=== PATIENT | female | born 1955 | race Caucasian/White ===

== ENCOUNTER 2021-07-16 15:20 | Outpatient (REF) | payer OTHER, SELFPAY ==
--- NOTE | ~2021-07-16 | US_ITS ---
EXAMINATION: US PELVIS CLINICAL INFORMATION: This is a 65-year-old female with left lower quadrant pain. Postmenopausal. COMPARISON: None TECHNIQUE: Ultrasound of the pelvis is performed using both transabdominal and transvaginal transducers along with Doppler. Transvaginal imaging is performed due to inadequate visualization transabdominally. FINDINGS: Uterus: The uterus is anteverted and anteflexed and measures 3.7 x 2.1 x 3.1 cm. The double wall endometrial thickness is abnormal and contains fluid and debris and measures 3 mm. The uterus is smooth in contour and has normal myometrial echogenicity. There is a hypoechoic, smooth, noncalcified probable fibroid in the posterior fundus measuring 1.9 x 1.0 x 1.5 cm. Adnexa: The right ovary is not seen. The left ovary is difficult to visualize. It is felt to measure 1.6 x 1.2 x 1.7 cm for a volume of 1.7 mL. There is a complex cystic area distinct from the ovary which has a thickened wall without septation or nodularity. This measures 5.1 x 4.5 x 4.7 cm. No free fluid is seen in the pelvis. US/US pelvic and transvaginal IMPRESSION: 1. The study is abnormal in 2 areas. 2. The endometrial cavity appears abnormal, measuring 0.3 cm and containing fluid and debris. 3. In addition, there is a complex tic walled cyst in the left adnexal area which appears to be distinct from the ovary. 4 given this constellation of findings, I recommend an MRI of the pelvis.
== END 2021-07-16 15:21 | disposition home or self-care (01) ==
LOC: HO.HMGCX 15:20
PROVIDERS: PCP Pediatrics; Visit Provider Pediatrics
DX: R10.32 Left lower quadrant pain (principal)
CPT/HCPCS: 76830; 76856

== ENCOUNTER → 2021-10-07 10:31 | Outpatient (BNVA) | payer OTHER, SELFPAY | PROVIDERS: PCP Pediatrics; Visit Provider Surgery Vascular Surgery | DX: I83.12 Varicose veins of left lower extremity with inflammation (principal) | CPT/HCPCS: 99212 ==

== ENCOUNTER → 2021-10-18 09:22 | Outpatient (BNVA) | payer OTHER, SELFPAY | PROVIDERS: PCP Pediatrics; Referring Provider Pediatrics; Visit Provider Internal Medicine Cardiovascular Disease | DX: I47.1 Supraventricular tachycardia (principal) | CPT/HCPCS: 99212 ==

== ENCOUNTER 2021-10-26 07:54 | Outpatient (REF) | payer OTHER, SELFPAY ==
--- NOTE | ~2021-10-26 | US_ITS ---
EXAMINATION: US LOWER EXTREMITY VENOUS (REFLUX EXAM), BILATERAL CLINICAL INDICATION: This is a 65-year-old female with venous insufficiency and varicose veins. Venous reflux. COMPARISON: None. TECHNIQUE: Color flow triplex imaging and compression Doppler was performed to evaluate both the deep and the superficial systems bilaterally. To evaluate the superficial system, the examination was performed in the upright position. Color-flow Doppler ultrasound and compression ultrasound were utilized. In addition, maneuvers were utilized to demonstrate reflux. FINDINGS: 1. DEEP VENOUS ULTRASOUND OF THE RIGHT LOWER EXTREMITY: Common Femoral Vein: Compressible, normal respiratory variation and augmented flow. Femoral vein: Compressible, normal color flow and augmentation. Popliteal Vein: Compressible, normal augmentation. Deep Reflux: There is no evidence of reflux in the deep system in either the common femoral vein or the popliteal vein. There is no evidence of a Hurt's cyst. 2. SUPERFICIAL ULTRASOUND WITH DOPPLER OF RIGHT LOWER EXTREMITY: GREAT SAPHENOUS VEIN: Saphenofemoral Junction: 0.6 cm. The reflux time is 1704 ms. Mid Thigh: 0.4 cm. The reflux time is 3552 ms. Above Knee: 0.3 cm. There is no reflux. Below Knee: 0.4 cm. The reflux time is 3528 ms. Mid Calf: 0.2 cm. There is no reflux. Ankle: 0.2 cm. There is no reflux. GSV REFLUX: No evidence of reflux. DUPLICATED GREAT SAPHENOUS VEIN: None SMALL SAPHENOUS VEIN: Proximal: 0.1 cm Distal: 0.2 cm SSV REFLUX: No evidence of reflux. VEIN OF GIACOMINI: None Imaged. PERFORATORS: There is a 0.2 cm mid calf division chair without reflux. VARICOSITIES: There are mid thigh varicose veins measuring 0.5 cm with 2332 ms of reflux. There is distal thigh varicose veins measuring 0.4 cm with greater than 3 seconds of reflux. There are 0.6 cm varicose veins at the knee with greater than 3 seconds of reflux. There is a 0.4 cm varicose vein in the proximal calf with greater than 3 seconds of reflux. 3. DEEP VENOUS ULTRASOUND OF THE LEFT LOWER EXTREMITY: Common Femoral Vein: Compressible, normal respiratory variation and augmented flow. Femoral Vein: Compressible, normal color flow and augmentation. Popliteal Vein: Compressible, normal augmentation. Deep Reflux: There is no evidence of reflux in the deep system in either the common femoral vein or the popliteal vein. There is no evidence of a Hurt's cyst. 4. SUPERFICIAL ULTRASOUND WITH DOPPLER OF LEFT LOWER EXTREMITY: GREAT SAPHENOUS VEIN: Saphenofemoral Junction: 0.9 cm. There is no reflux at the junction. Mid Thigh: 0.6 cm. The reflux time is 3292 ms per Above Knee: 0.6 cm. The reflux time is 3460 ms. Below Knee: 0.7 cm. The reflux time is 3532 ms. Mid Calf: 0.3 cm. The reflux time is 3220 ms. Ankle: 0.2 cm. There is no reflux. GSV REFLUX: No evidence of reflux. DUPLICATED GREAT SAPHENOUS VEIN: None SMALL SAPHENOUS VEIN: Proximal: 0.3 cm Distal: 0.2 cm SSV REFLUX: No evidence of reflux. VEIN OF GIACOMINI: None Imaged. PERFORATORS: There are 0.3 cm perforators in the mid and distal calf with 1996 ms of reflux. VARICOSITIES: There are 0.5 cm and 0.6 cm varicose veins in the distal thigh and proximal calf, respectively with greater than 3 seconds of reflux. US/US venous duplex LE BI IMPRESSION: 1. There is a patent right great saphenous vein with reflux at the junction and extending down the thigh. 2. There are varicose veins in the right thigh and calf with greater than 3 seconds of reflux. 3. There is a patent right small saphenous vein without reflux. 4. There is a patent left great saphenous vein without reflux at the junction. However, there is reflux from the proximal thigh down to the mid calf. 5. There is a patent left small saphenous vein without reflux. 6. There are 0.5 cm and 0.6 cm, respectively, varicose veins with greater than 3 seconds of reflux in the left leg.
== END 2021-10-26 07:55 | disposition home or self-care (01) ==
LOC: HO.US 07:54
PROVIDERS: Visit Provider Surgery Vascular Surgery
DX: I83.12 Varicose veins of left lower extremity with inflammation (principal)
CPT/HCPCS: 93970

== ENCOUNTER → 2021-12-29 09:18 | Outpatient (REF) | payer OTHER, SELFPAY ==
--- NOTE | 2021-12-29 09:23 | CA_ITS ---
Transthoracic Echocardiogram Patient (Last, First, Middle): Macarena Roa, Gender: Female Date of : 1955 Age: 66 Procedure Date: 12/29/2021 Procedure Type: Transthoracic Echocardiogram Location: OP Height: 165.1 cm Weight: 58.97 kg BSA: 1.65 m2 Heart Rate: bpm BP: 126 / 79 mmHg Tapper Balance Wheel Screw Hole: VH/TO Referring MD: Chan Henderson MD Body Presser: Chan Henderson MD Symptoms: I47.1 - Supraventricular tachycardia Study Quality: Good ECG Rhythm: Sinus Conclusions: - Essentially normal study Findings Left Ventricle Normal left ventricular size, thickness, and systolic function. The visually estimated ejection fraction is between 60-65%. Spectral Doppler is indicative of a normal filling pattern. Right Ventricle Normal right ventricular cavity size and systolic function. Atria Both atria are normal in size. There is no evidence of interatrial shunt. Aortic Valve Normal aortic valve structure and function. There is no aortic valve stenosis. There is no aortic valve regurgitation. Mitral Valve Normal mitral valve structure and function. There is trace mitral valve regurgitation. There is no mitral valve stenosis. Pulmonic Valve The pulmonic valve was not well visualized. Tricuspid Valve Normal tricuspid valve structure. There is trace tricuspid valve regurgitation. Normal right atrial pressure. There is no evidence of pulmonary hypertension. Great Vessels All visible segments of the aorta are normal in size. The pulmonary artery was not well visualized. Venous The inferior vena cava is normal in size and collapses greater than 50% with inspiration. Pericardium/Pleural There is no evidence of pericardial effusion. Prior Study Comparison No significant change compared to prior study dated: 01/10/2017. Measurements 2D Linear Measurements IVSd: 0.66 0.6-0.9/0.6-1.0 cm LVIDd: 4.18 3.9-5.3/4.2-5.9 cm LVIDd Index: 2.53 2.4-3.2/2.2-3.1 cm/m2 LVIDs: 2.77 2.0-3.6 cm LVPWd: 0.70 0.7-1.1 cm Ao Root: 3.20 2.1-3.5 cm LA Diam: 2.70 2.7-3.8/3.0-4.0 cm LAIDs Index: 1.64 1.5-2.3 cm/m2 LV Mass: 99.92 67-162/88-224 g LV Mass Index: 60.56 43-95/49-115 g/m2 LVOT Diam: 2.00 3.0+(-)1.3 cm Mitral Valve MV Pk E: 0.49 MV PK A: 0.52 MV Decel Time: 212.00 E/A: 0.90 E'Lateral: 10.70 E'Medial: 9.57 E/E' Med: 5.20 E/E' Lat: 4.60 PHT: 62.00 MVA PHT: 3.55 Decel Woodruff: 2.32 Aortic Valve AoV Pk Lewis: 1.13 AoV Mn Lewis: 0.84 AoV VTI: 0.26 AoV Pk Grad: 5.00 Aov Mn Grad: 3.00 RAMONE Cont.VTI: 2.82 LVOT LVOT Pk Lewis: 1.04 LVOT Mn Lewis: 0.65 LVOT VTI: 0.23 LVOT Pk Grad: 4.00 LVOT Mn Grad: 2.00 LVOT Diam: 2.00 LVOT Area: 3.14 Diastolic Function MV Pk E: 0.49 MV Pk A: 0.52 E/A: 0.90 E'Medial: 9.57 E/E' Med: 5.20 E' Laterial: 10.70 E/E' Lat: 4.60 Tricuspid Valve TR Pk Lewis: 1.68 TR Pk Grad: 11.00 RA Press: 3.00 RVSP: 14.00 Great Vessels Aorta Ao Root-2D: 3.20 2.0-3.7 cm Ao Asc: 3.60 2.1-3.4 cm Pulmonary Valve PV Pk Lewis: 0.71 Peak PV Grad: 2.00 Updated in Other Vendor System with Status of Final Chan Henderson MD electronically signed on 12/29/2021 1:30:42 PM with status of Final
== END ==
LOC: HO.CARD 09:18
PROVIDERS: Visit Provider Internal Medicine Cardiovascular Disease
DX: I47.1 Supraventricular tachycardia (principal)
CPT/HCPCS: 93306

== ENCOUNTER → 2021-12-30 15:17 | Outpatient (BNVA) | payer OTHER, SELFPAY | PROVIDERS: PCP Pediatrics; Visit Provider Surgery Vascular Surgery | DX: I83.12 Varicose veins of left lower extremity with inflammation (principal) | CPT/HCPCS: 99212 ==

== ENCOUNTER → 2022-01-11 14:54 | Outpatient (BNVA) | payer OTHER, SELFPAY | PROVIDERS: PCP Pediatrics; Referring Provider Pediatrics; Visit Provider Internal Medicine Cardiovascular Disease | DX: I47.1 Supraventricular tachycardia (principal) | CPT/HCPCS: 99212 ==

== ENCOUNTER → 2022-01-28 10:21 | Outpatient (BNVA) | payer OTHER, SELFPAY | PROVIDERS: PCP Pediatrics; Visit Provider Surgery Vascular Surgery | DX: I83.12 Varicose veins of left lower extremity with inflammation (principal) | CPT/HCPCS: 36475 ==

== ENCOUNTER 2022-01-31 15:01 | Outpatient (REF) | payer OTHER, SELFPAY ==
--- NOTE | ~2022-01-31 | US_ITS ---
EXAMINATION: US VENOUS ULTRASOUND WITH DOPPLER LOWER EXTREMITY, LEFT CLINICAL INFORMATION: Pain. Post RF procedure 01/28/2021 COMPARISON: None TECHNIQUE: Ultrasound of the deep veins is performed from the hip to the calf with compression sonography and color and pulse Doppler assessment. Spectral analysis with color-flow imaging is performed. FINDINGS: There is normal venous compression and respiratory variation and augmented flow. The visualized common femoral vein, superficial femoral vein, profunda femoral vein, popliteal vein, and the trifurcation region shows no evidence of deep venous thrombosis. There is echogenic material seen in the greater saphenous vein post RF procedure. This extends to 2.3 cm from the saphenofemoral junction. The visualized greater saphenous vein is closed. There is no significant popliteal fossa cyst. US/US venous duplex LE LT IMPRESSION: No DVT demonstrated in the left lower extremity.
== END 2022-01-31 15:02 | disposition home or self-care (01) ==
LOC: HO.US 15:01
PROVIDERS: Visit Provider Surgery Vascular Surgery
DX: M79.605 Pain in left leg (principal)
CPT/HCPCS: 93971

== ENCOUNTER → 2022-02-17 15:00 | Outpatient (BNVA) | payer OTHER, SELFPAY | PROVIDERS: PCP Pediatrics; Visit Provider Surgery Vascular Surgery | DX: I83.11 Varicose veins of right lower extremity with inflammation (principal) | CPT/HCPCS: 99212 ==

== ENCOUNTER → 2022-04-08 09:55 | Outpatient (BNVA) | payer OTHER, SELFPAY | PROVIDERS: PCP Pediatrics; Visit Provider Surgery Vascular Surgery | DX: I83.11 Varicose veins of right lower extremity with inflammation (principal) | CPT/HCPCS: 36475 ==

== ENCOUNTER 2022-04-11 11:08 | Outpatient (REF) | payer OTHER, SELFPAY ==
--- NOTE | ~2022-04-11 | US_ITS ---
EXAMINATION: US VENOUS ULTRASOUND WITH DOPPLER LOWER EXTREMITY, RIGHT CLINICAL INFORMATION: Pain and swelling COMPARISON: None TECHNIQUE: Ultrasound of the deep veins is performed from the hip to the calf with compression sonography and color and pulse Doppler assessment. Spectral analysis with color-flow imaging is performed. FINDINGS: There is normal venous compression and respiratory variation and augmented flow. The visualized common femoral vein, superficial femoral vein, profunda femoral vein, popliteal vein, and the trifurcation region shows no evidence of deep venous thrombosis. There is no significant popliteal fossa cyst. US/US venous duplex LE RT IMPRESSION: No DVT demonstrated in the right lower extremity.
== END 2022-04-11 11:09 | disposition home or self-care (01) ==
LOC: HO.US 11:08
PROVIDERS: Visit Provider Surgery Vascular Surgery
DX: M79.604 Pain in right leg (principal)
CPT/HCPCS: 93971

== ENCOUNTER → 2022-04-21 15:46 | Outpatient (BNVA) | payer OTHER, SELFPAY | PROVIDERS: PCP Pediatrics; Visit Provider Surgery Vascular Surgery | DX: I83.11 Varicose veins of right lower extremity with inflammation (principal); Z98.890 Other specified postprocedural states | CPT/HCPCS: 99212 ==

== ENCOUNTER → 2023-01-12 14:25 | Outpatient (BNVA) | payer SELFPAY | PROVIDERS: PCP Pediatrics; Referring Provider Pediatrics; Visit Provider Internal Medicine Cardiovascular Disease | DX: I47.1 Supraventricular tachycardia (principal); R07.89 Other chest pain | CPT/HCPCS: 93005; 99212 ==

== ENCOUNTER 2023-04-13 13:04 | Outpatient (REF) | payer OTHER, SELFPAY ==
--- NOTE | ~2023-04-13 | MM_ITS ---
EXAMINATION: MM SCREENING DIGITAL BREAST TOMOSYNTHESIS, BILATERAL CLINICAL INFORMATION: Screening. Asymptomatic. The lifetime risk of breast cancer based on the Tyrer-Cuzick Model is 6%. COMPARISON: Mammography: 08/14/2019, 07/26/2018, 01/12/2016 TECHNIQUE: Digital breast tomosynthesis is performed in both the craniocaudal and mediolateral oblique views along with computer-aided detection (CAD). Synthesized 2D images are generated from the tomosynthesis. FINDINGS: The breasts are heterogeneously dense, which may obscure small masses (ACR BI-RADS breast composition Category c). Breast tissue composition borders on average fibroglandular. There are no significant masses, abnormal calcifications, or other abnormalities. No architectural abnormality or developing density. Again, there are are stable oval nodules in the bilateral outer quadrants similar to prior studies. The axilla and skin contours are unremarkable. MM/MM tomosynthesis screening BI IMPRESSION: No mammographic evidence of malignancy. ASSESSMENT: BI-RADS 2: Benign RECOMMENDATION: Routine annual mammography screening. This patient's information was entered into a reminder system with a target due date for their next mammogram.
--- NOTE | ~2023-04-13 | MM_ITS ---
EXAMINATION: BONE DENSITOMETRY CLINICAL INDICATION: Osteopenia. COMPARISON: Previous BD dated 07/26/2018 and baseline BD dated 02/11/2011. TECHNIQUE: Using a zLense DXA System (software version: 13.1) manufactured by [employer], dual-energy x-ray absorptiometry was performed of the lumbar spine and left hip. The images are of good technical quality. Summary results are attached. FINDINGS: AP SPINE L1-L2 (excluding L3 and L4): The data of L1-L4 has been changed to exclude the L3 and L4 vertebral bodies, because degenerative sclerosis at these levels may cause overestimation of lumbar spine density. Current: BMD 1.009 g/cm2, Z-score 0.4, T-score -1.3, osteopenia, 0.2% decrease from previous, 3.2% decrease from baseline (<5% change is not significant). Prior: BMD 1.011 g/cm2. Baseline: BMD 1.042 g/cm2. LEFT FEMUR, NECK: Current: BMD 0.811 g/cm2, Z-score -0.1, T-score -1.6, osteopenia. Prior: BMD 0.749 g/cm2. Baseline: BMD 0.886 g/cm2. LEFT FEMUR, TOTAL: Current: BMD 0.888 g/cm2, Z-score 0.3, T-score -1.0, normal, 11.1% increase from previous, 8.4% decrease from baseline (<5% change is not significant). Prior: BMD 0.829 g/cm2. Baseline: BMD 0.969 g/cm2. IDENTIFIED RISK FACTORS: Menopause. HISTORY OF FRACTURE: None listed. MEDICATIONS: Calcium supplements or multivitamin, vitamin D. MM/XR DEXA axial skeleton IMPRESSION: 1. DIAGNOSIS: Osteopenia based on the lowest T-score value of -1.6 in the femoral neck applying World Health Organization criteria. 2. 10-YEAR FRACTURE RISK PREDICTION, FRAX: Major osteoporotic fracture (clinical spine, forearm, hip or shoulder) 9.1%. Hip fracture 1.1%. 3. Treatment Recommendations: NOF guidelines recommend consideration for treatment in postmenopausal women and men age 50 and older presenting with the following: -A hip or vertebral (clinical or morphometric) fracture. -T-score less than or equal to -2.5 at the femoral neck or spine after appropriate evaluation to exclude secondary causes. -Low bone mass at the hip or spine and a 10-year fracture probability by FRAX of greater than or equal to 3% for hip fracture or greater than or equal to 20% for major osteoporotic fracture based on the [place] adapted WHO algorithm. 4. Other Recommendations: All treatment decisions require clinical judgment and consideration of individual patient factors, including patient preferences, comorbidities, previous drug use, risk factors not captured in the FRAX model (e.g. frailty, falls, vitamin D deficiency, increased bone turnover, interval significant decline in bone density) and possible under or overestimation of fracture risk by FRAX. Additional medical evaluation for secondary cause of low bone mineral density may be appropriate. FUTURE SCAN RECOMMENDATION: People with diagnosed cases of osteoporosis or at high risk for fracture should have regular bone mineral density tests. For patients eligible for Medicare, routine testing is allowed once every 2 years. The testing frequency can be increased to one year for patients who have rapidly progressing disease, those who are receiving or discontinuing medical therapy to restore bone mass, or have additional risk factors.
== END 2023-04-13 13:05 | disposition home or self-care (01) ==
LOC: HO.MAMMO 13:04
PROVIDERS: Visit Provider Pediatrics
DX: Z12.31 Encounter for screening mammogram for malignant neoplasm of breast (principal); Z13.820 Encounter for screening for osteoporosis; Z78.0 Asymptomatic menopausal state; M85.859 Other specified disorders of bone density and structure, unspecified thigh
CPT/HCPCS: 77063; 77067; 77080

== ENCOUNTER 2024-01-16 15:22 | Outpatient (AMB) | payer MEDICARE, SELFPAY ==
[2024-01-16 15:37] VITALS: BP 120/70; PULSE 78; BMI 22.4
--- NOTE | 2024-01-16 15:37 | MHC.OFFVIS ---
Intake Vital Signs 01/16/24 15:37 Height 5 ft 6 in Weight 138 lb 14.259 oz BMI 22.4 BP 120/70 Blood Pressure Location Lt brachial Position Sitting Pulse 78 Intake Visit Reasons: 1 yr f/up Intake Note: 1 year follow-up with ekg feeling good c/o sometimes feeling heart heaviness Group Burner Machine Required: No Allergies environmental allergies Allergy (Verified 01/12/23 15:10) Unknown Medication List - Last Reconciled 01/16/24 by Chan Henderson MD albuterol sulfate 90 mcg/actuation 2 puffs inhalation Q4H PRN cholecalciferol (vitamin D3) 50 mcg PO DAILY fluticasone propionate 50 mcg/actuation 2 sprays intranasal DAILY levothyroxine 75 mcg PO DAILY loratadine 10 mg PO DAILY PRN sumatriptan succinate 100 mg PO HPI HPI Comments History of Present Illness Details Anabela comes for follow-up. She has had no recurrent episodes of SVT in the last 2 years since I saw him. She is doing well. Continues to exercise without any exertional symptoms. Heavily involved in care of her which has been stressful. Currently not taking any medicines from heart perspective. FOR[facility]LY [facility], [facility] Medical History SVT (supraventricular tachycardia) Surgical History Status post radiofrequency ablation (RFA) operation for arrhythmia Family History Father CAD (coronary artery disease) Cancer of kidney History of nephrectomy Mother CAD (coronary artery disease) Heart attack Social History Alcohol intake: current Alcohol intake frequency: holidays/special occasions only Alcohol type: wine Patient Tobacco Use Status: Never used Tobacco Review of Systems Const Denies chills, Denies fatigue, Denies fever(s), Denies frequent falls, Denies weakness, Denies weight gain and Denies weight loss ENT Denies dizziness Card Denies chest pain, Denies leg edema, Denies lightheadedness, Denies palpitations, Denies dyspnea, Denies dyspnea on exertion, Denies orthopnea and Denies other (loss of consciousness) Resp Denies cough, Denies dyspnea and Denies dyspnea on exertion GI Denies hematochezia and Denies change in stool character Musc Denies abnormal gait, Denies muscle weakness, Denies numbness, Denies radiating pain into limb and Denies tingling Neuro Denies abnormal gait, Denies dizziness, Denies frequent falls, Denies numbness, Denies tingling and Denies weakness Endo Denies fatigue and Denies palpitations Physical Exam Vital Signs: Last Vital Signs Pulse 78 01/16/24 15:37 BP 120/70 01/16/24 15:37 BMI result Body Mass Index 22.4 Const General: cooperative, comfortable, no acute distress, alert, awake, Physically active and anxious Nutritional Appearance: thin Orientation/consciousness: patient oriented x3 Limitations: no limitations Neck Neck: Yes trachea midline, Yes supple and Yes no JVD Resp Effort & Inspection: normal respiratory effort Auscultation: wheezes left lower Cardio Jugular venous distension: no JVD Palpation: normal PMI Rate: regular rate Rhythm: regular rhythm Heart sounds: S1 normal heart sound present, S2 normal heart sound present, no click, no gallops, no murmurs and no rubs GI Auscultation: normal bowel sounds Skin General skin exam: no rashes or lesions noted Neuro General: patient oriented x3 and no focal motor deficits Extrem General: Yes no clubbing, cyanosis or edema Office Procedures EKG Details: EKG shows normal sinus rhythm normal EKG at 78 beats per minute [id number], Complete Assessment & Plan Assessment & Plan (1) SVT (supraventricular tachycardia): Comment: AVNRT type. Most recent episode 10/09/2021 with hypotension Code(s): I47.1 - Supraventricular tachycardia Plan: Highly symptomatic SVT in the past status post ablation of the slow pathway. She is done well and is currently off all medications and has had no recurrent events. We discussed about vagal maneuvers. Avoidance of stimulants was discussed. Stress mitigation strategies were discussed. No further therapy is indicated at this point time. Will follow up in the clinic if need be. Thank you for allowing me to partake in the care Coding Level of Care Code Est Pt Level 3 (83597) Diagnoses SVT (supraventricular tachycardia) I47.1 CPT Codes EKG - CPT: 18998-[id number], Complete ([id number])
== END 2024-01-16 16:01 | disposition home or self-care (01) ==
PROVIDERS: PCP Pediatrics; Visit Provider Internal Medicine Cardiovascular Disease
DX: I47.10 Supraventricular tachycardia, unspecified (principal)
CPT/HCPCS: 93010; 99213

== ENCOUNTER → 2024-01-16 15:22 | Outpatient (BNVA) | payer MEDICARE, SELFPAY | PROVIDERS: Visit Provider Internal Medicine Cardiovascular Disease | DX: I47.10 Supraventricular tachycardia, unspecified (principal) | CPT/HCPCS: 93005; 99212 ==

== ENCOUNTER 2024-03-20 12:37 | Outpatient (REF) | payer MEDICARE, SELFPAY ==
[2024-03-20 14:26] LABS: MANUAL DIFF FLAG NO
[2024-03-20 14:41] LABS: Basophils Percent Auto 0.7 % (0-2); Eosinophils Absolute Auto 0.2 X10*3/uL (0.0-0.4); Eosinophils Percent Auto 4.6 % (0-4); Hematocrit 34.9 % (37.0-47.0); Hemoglobin 11.8 g/dl (12.0-16.0); Imm Gran Abs Auto 0.01 X10*3/uL (0.00-0.03); Imm Gran Pct Auto 0.2 % (0.0-0.4); Lymphocytes Percent Auto 46.2 % (20-40); Mean Corpuscular HGB Conc 33.8 g/dl (31.0-35.0); Mean Corpuscular Hemoglobin 31.4 pg (27.0-33.0); Mean Corpuscular Volume 92.8 fL (80.0-98.0); Mean Platelet Volume 10.5 fL (9.4-12.3); Monocytes Absolute Auto 0.4 X10*3/uL (0.1-1.2); Neutrophils Absolute Auto 1.7 x10*3/uL (2.0-8.3); Neutrophils Percent Auto 39.3 % (45-73); Platelet Count 210 X10*3/uL (160-400); Red Blood Count 3.76 X10*6/uL (4.20-5.50); Red Cell Distribution Width 12.4 % (11.0-16.0); White Blood Count 4.3 X10*3/uL (4.8-10.8)
[2024-03-20 15:27] LABS: Anion Gap 12 (12-20); Blood Urea Nitrogen 19 mg/dL (9-16); Carbon Dioxide 26 mmol/L (22-29); Chloride 105 mmol/L (96-108); Cholesterol 199 mg/dL (<200); Estimated Glomerular Filt Rate > 60; Glucose Fasting 78 mg/dL (60-99); HDL Cholesterol 85 mg/dL (>40); LDL Cholesterol Calculated 107 mg/dL (<100); Potassium 3.8 mmol/L (3.3-5.1); Sodium 139 mmol/L (135-145); Triglycerides 35 mg/dL (<150)
[2024-03-20 15:34] LABS: TSH reflex Free T4 3.59 uIU/mL (0.32-4.0); Vitamin D 25-OH Total 27.5 ng/mL (>30)
[2024-03-20 15:43] LABS: Folate 8.3 ng/mL (> or = 4.0); Vitamin B12 266 pg/mL (200-900)
== END 2024-03-20 12:38 | disposition home or self-care (01) ==
LOC: HO.CHCLDS 12:37
PROVIDERS: Visit Provider Pediatrics
DX: M85.80 Other specified disorders of bone density and structure, unspecified site (principal); E03.9 Hypothyroidism, unspecified; I47.10 Supraventricular tachycardia, unspecified; R41.3 Other amnesia; Z78.0 Asymptomatic menopausal state
CPT/HCPCS: 36415; 80048; 80061; 82306; 82607; 82746; 84443; 85025

== ENCOUNTER 2024-03-28 15:27 | Outpatient (REF) | payer MEDICARE, SELFPAY ==
--- NOTE | ~2024-03-28 | US_ITS ---
EXAMINATION: US PELVIS COMPLETE CLINICAL INFORMATION: Complex ovarian cyst follow-up COMPARISON: Pelvic ultrasound 07/16/2021 TECHNIQUE: Transabdominal and transvaginal imaging was performed. FINDINGS: The uterus is of normal size and echogenicity measuring 4.0 x 2.5 x 2.4 cm. Endometrium is distended with a moderate amount of fluid. The endometrial thickness is 0.2 cm. A 1.5 cm intramural myoma in the left body of the uterus, decreased from prior previously 1.9 cm. The right ovary was not identified sonographically. The left measures 2.3 x 1.0 x 1.2 cm for a volume of 1.4 mL. A previously seen left adnexal cyst was no longer identified on today's exam. There is no pelvic free fluid. US/US pelvic and transvaginal IMPRESSION: 1. A 1.5 cm intramural myoma in the left body of the uterus, decreased in size from prior. 2. The endometrium is distended with a moderate amount of fluid. The bilayer endometrial thickness is 0.2 cm, excluding the fluid. 3. A previously seen left adnexal cyst was no longer identified on today's exam. 4. The right ovary was not identified sonographically.
== END 2024-03-28 15:28 | disposition home or self-care (01) ==
LOC: HO.US 15:27
PROVIDERS: PCP Pediatrics; Visit Provider Pediatrics
DX: N83.202 Unspecified ovarian cyst, left side (principal)
CPT/HCPCS: 76830; 76856

== ENCOUNTER 2024-12-23 12:27 | Outpatient (REF) | payer MEDICARE, SELFPAY ==
--- NOTE | ~2024-12-23 | XR_ITS ---
CLINICAL HISTORY: 3 WEEKS OF POSTERIOR KNEE PAIN,WITH FLEXION,MILD INSTABILITY 2 view left knee Comparison: None Findings: No fractures or dislocations. Mild arthritic change of the medial knee compartment. No joint effusion. No radiopaque foreign body. There are varices within the medial aspect of the visualized left lower extremity. IMPRESSION: 1. No acute findings. This document has been electronically signed by: Yoselin Robert MD on 12/23/2024 13:47:47
--- OUTSIDE RECORDS SUMMARY | 2024-12-23 13:46 | XMS_ITS | Encounter Summary ---
Author Organization [employer] Address [address] [place] [address] Care Team Providers Care Barrel Coater Name Role Phone Rossy Macias MD Primary Care Provider [phone] Reason for Visit * Reason Onset Date Comments No Show 12/13/2024 Encounter Details Date Type Department Care Team ([facility] Contact Info) Description 12/13/2024 Telephone [facility] [address] [place] [address] Rossy Macias MD [address] [place] [address] No Show Social History Tobacco Use Types Packs/Day Years Used Date Smoking Tobacco: Never Smokeless Tobacco: Never Depression Answer Date Recorded Patient Health Questionnaire-9 Score 9 02/15/2023 Housing Stability Answer Date Recorded What is your housing situation today? I have kvngparker june 03/13/[address] you li ve. Do you have problems with any of the following? None of the above 03/13/2024 Food Insecurity Answer Date Recorded Within the past 12 months, y ou worried that your food would run out before you got money to buy more: Never True 03/13/2024 Within the past 12 months,th e food you bought just didn't last and you didn't have enough money to get more: Never True Transportation Answer Date Recorded In the past 12 months, has l ack of transportation kept you from medical appts, meetings, work or from getting things needed for daily living? No 03/13/2024 Utilities Answer Date Recorded In the past 12 months, has t he electric, gas, oil or water company threatened to shut off services in your home? No 03/13/2024 Depression Answer Date Recorded Patient Health Questionnaire-2 Score 2 02/15/2023 Comments Unknown Sex and Gender Information Value Date Recorded Sex Assigned at Female 09/19/2022 10:17 AM EDT Legal Sex Female 10:17 AM EDT Gender Identity Female 09/19/2022 10:17 AM EDT Sexual Orientation Straight 09/19/2022 10 :17 AM EDT documented as of this encounter Miscellaneous Notes * Telephone Encounter - Michelle Murray - 12/13/2024 2:52 PM EST 12/13/24 no show for sinus headache, occasional pain in legs documented in this encounter Plan of Treatment Not on file documented as of this encounter Visit Diagnoses Not on filedocumented in this encounter Additional Health Concerns Assessment Noted Time PHQ-9 Depression Total Score: 9 02/16/20 23 2:25 PM EDT documented as of this encounter Care Teams Barrel Coater Relationship Specialty Start Date End Date Rossy Macias MD [address] [place] [id number] PCP - General Family Medicine 07/15/14 documented as of this encounter
--- OUTSIDE RECORDS SUMMARY | 2024-12-23 13:46 | XMS_ITS | Encounter Summary ---
Author Organization [employer] Address [address] [facility] [address] [facility] [place] [address] Care Team Providers Care Sheet Metal Engineer Name Role Phone Rossy Macias MD Primary Care Provider [phone] Encounter Details Date Type Department Care Team (Late st Contact Info) Description 12/16/2024 3:00 PM EST Office Visit [facility] MED & PEDS [address] [place], [place] [phone] Gilma Long MD [address] [place] [address] Frontal sinus pain (Primary Dx); Posterior left knee pain Social History Tobacco Use Types Packs/Day Years Used Date Smoking Tobacco: Never Passive Smoke Exposure: Never Smokeless Tobacco: Never Tobacco Cessation:Counseling Given: Not Answered Depression Answer Date Recorded Patient Health Questionnaire-9 Score 9 02/15/2023 Housing Stability Answer Date Recorded What is your housing situation today? I have kvng june 03/13/[address] you [...] AM EDT documented as of this encounter Last Filed Vital Signs Vital Sign Reading Time Taken Comments Blood Pressure 110/68 12/16/2024 3:03 PM EST Pulse 80 12/16/2024 3:03 PM EST Temperature 36.5 ??C (97.7 ??F) 12/16/2024 3:03 PM ES T Respiratory Rate 16 12/16/2024 3:03 PM EST Oxygen Saturation - - Inhaled Oxygen Concentration - - Weight 64 kg (141 lb) 12/16/2024 3:03 PM EST Height 165.1 cm (5' 5 ) 12/16/2024 3:03 PM EST Body Mass Index 23.46 12/16/2024 3:03 PM EST documented in this encounter Progress Notes * Gilma Long MD - 12/16/2024 3:00 PM EST Subjective Patient ID: Macarena GOMEZ is a 69 y.o. female who for sinus headache and left knee pain. HPI For about 2 weeks, Macarena has had a headache intermittently that occurs over her eyebrows and above her nose. Pain is constant, not pulsating. Different than her migraines. Not associated with nasal congestion, fever, chills or recent URI. Has tried sumatriptan with some relief. Also concerned about a new pain in her left knee that started gradually a few weeks ago. Pain occurs when she flexes her knee deeply beyond 90 degrees. Also she has pain and some instability when shestands up. Denies injury, fall, swelling, other joint pain. Review of Systems Constitutional: Negative for chills and fever. HENT: Positive for sinus pain. Negative for congestion, postnasal drip and rhinorrhea. Respiratory: Negative for cough. Cardiovascular: Negative for chest pain, palpitations and leg swelling. Musculoskeletal: Positive for arthralgias. Negative for joint swelling. Objective BP 110/68 (BP Location: Left arm, Patient Position: Sitting, BP Cuff Size: Adult) Pulse 80 Temp97.7 ??F (36.5 ??C) (Oral) Resp 16 Ht 5' 5 (1.651 m) Wt 141 lb (64 kg) BMI 23.46 kg/m?? Physical Exam Constitutional: Appearance: She is not ill-appearing. HENT: Head: Normocephalic and atraumatic. Right Ear: Tympanic membrane, ear canal and external ear normal. Left Ear: Tympanic membrane, ear canal and external ear normal. Nose: Right Sinus: Frontal sinus tenderness present. Left Sinus: Frontal sinus tenderness present. Mouth/Throat: Mouth: Mucous membranes are moist. Eyes: General: No scleral icterus. Right eye: No discharge. Left eye: No discharge. Extraocular Movements: Extraocular movements intact. Conjunctiva/sclera: Conjunctivae normal. Pupils: Pupils are equal, round, and reactive to light. Pulmonary: Effort: Pulmonary effort is normal. Musculoskeletal: General: No signs of injury. Right knee: No swelling, bony tenderness or crepitus. Normal range of motion. No tenderness. No LCLlaxity, MCL laxity, ACL laxity or PCL laxity. Instability Tests: Anterior drawer test negative. Posterior drawer test negative. Left knee: Swelling (mild) and crepitus present. No bony tenderness. Normal range of motion. No tenderness. No LCL laxity, MCL laxity, ACL laxity or PCL laxity. Instability Tests: Anterior drawer test negative. Posterior drawer test negative. Right lower leg: No edema. Left lower leg: No edema. Comments: Visible but non bulging varicose veins bilateral legs. Neurological: General: No focal deficit present. Mental Status: She is alert. Psychiatric: Mood and Affect: Mood normal. Behavior: Behavior normal. Assessment/Plan Diagnoses and all orders for this visit: Frontal sinus pain: No indication for antibiotics at this time. Recommended sinus rinse as needed and gave her a sample bottle, explained how to use it. Told her to RTC if symptoms do not improve after a week or so. Posterior left knee pain: Mild swelling present but I detect no instability. No swelling in leg either to suspect DVT. Will start with knee xray and if arthritis, Rx for topical diclofenac. It none, will refer to Ortho. - XR Knee 1-2 Views Left; Future documented in this encounter Plan of Treatment Scheduled Orders Name Type Priority Associated Diagnoses Orde r Schedule XR Knee 1-2 Views Left Imaging Routine Posterior left knee pain Expected: 12/16/2024, Expires: 12/16/2025 documented as of this encounter Visit Diagnoses Diagnosis Frontal sinus pain- Primary Posterior left knee pain documented in this encounter Additional Health Concerns Assessment Noted Time PHQ-9 Depression Total Score: 9 02/16/20 23 2:25 PM EDT documented as of this encounter Care Teams Sheet Metal Engineer Relationship Specialty Start Date End Date Rossy Macias MD [address] [place] [id number] PCP - General Family Medicine 07/15/14 documented as of this encounter
--- OUTSIDE RECORDS SUMMARY | 2024-12-23 13:46 | XMS_ITS | Encounter Summary ---
Author Organization [employer] Address [address] [place] [address] Care Team Providers Care Legal Secretary Receptionist Name Role Phone Rossy Macias MD Primary Care Provider Reason for Visit * Reason Onset Date Comments Med Refill 02/22/2024 Encounter Details Date Type Department Care Team ([facility] st Contact Info) Description 02/22/2024 Telephone [facility] [address] [place] [address] Rossy Macias MD [address] [place], [place] [phone] Med Refill Social History Tobacco Use Types Packs/Day Years Used Date Smoking Tobacco: Never Assessed Depression Answer Date Recorded Patient Health Questionnaire-9 [...] encounter Miscellaneous Notes * Telephone Encounter - Chris Aviles - 02/22/2024 1:29 PM EDT Tc from pt requesting a refill albuterol 108 (90 Base) MCG/ACT inhaler. documented in this encounter Plan of Treatment Not on file documented as of this encounter Visit Diagnoses Not on filedocumented in this encounter Additional Health Concerns Assessment Noted Time PHQ-9 Depression Total Score: 9 02/16/20 23 2:25 PM EDT documented as of this encounter Care Teams Legal Secretary Receptionist Relationship Specialty Start Date End Date Rossy Macias MD [address] [place] [id number] PCP - General Family Medicine 07/15/14 documented as of this encounter
--- OUTSIDE RECORDS SUMMARY | 2024-12-23 13:46 | XMS_ITS | Encounter Summary ---
Author Organization [employer] Address [address] [place] [address] Care Team Providers Care Sports Physician Name Role Phone Rossy Macias MD Primary Care Provider [phone] Reason for Visit * Reason Onset Date Comments Walk-In 12/12/2024 Sinus headache, occasional leg pain Encounter Details Date Type Department Care Team ([facility] st Contact Info) Description 12/12/2024 Telephone [facility] MED & PEDS [address] [place] [address] Yoselin Ngo RN Walk-In (Sinus headache, occasional leg pain/) Social History Tobacco Use Types Packs/Day Years [...] encounter Miscellaneous Notes * Telephone Encounter - Yoselin Ngo RN - 12/12/2024 4:06 PM EST Patient walked-in to clinic to be seen for sinus headache and occasional leg pain. Patient is stateless speaking, stateless bilingual interpreter #[id number] used to communicate. Patient states she has headache in the sinus area forever but lately it has increased in frequency. She is now getting these headaches about 1-2 x a week. She states they are different than a migraine. She denies congestion, cough, sputum,fever. Patient is requesting imagining of her sinuses. Explained to patient that the provider will discuss imagining with her at her appointment. Appointment scheduled for 12/13/24 at 2:00 at [facility]. Patient also stated she occasionally has pain in the back of her legs. Rodríguez's sign was negative. No difficulty ambulating. Explained to patient that provider would assess her legs at appointment. Patient stated understanding and agrees with the plan. documented in this encounter Plan of Treatment Not on file documented as of this encounter Visit Diagnoses Not on filedocumented in this encounter Additional Health Concerns Assessment Noted Time PHQ-9 Depression Total Score: 9 02/16/20 23 2:25 PM EDT documented as of this encounter Care Teams Sports Physician Relationship Specialty Start Date End Date Rossy Macias MD [address] [place] [id number] PCP - General Family Medicine 07/15/14 documented as of this encounter
--- OUTSIDE RECORDS SUMMARY | 2024-12-23 13:46 | XMS_ITS | Encounter Summary ---
Author Organization [employer] Address [address] [place] [address] Care Team Providers Care Brake Lining Finisher Asbestos Name Role Phone Rossy Macias MD Primary Care Provider [phone] Reason for Visit * Reason Onset Date Comments Nurse Triage 02/22/2024 Encounter Details Date Type Department Care Team ([facility] st Contact Info) Description 02/22/2024 Telephone [facility] [address] [place] [address] Rossy Macias MD [address] [place], [place] [phone] Nurse Triage Social History Tobacco Use Types Packs/Day Years [...] encounter Miscellaneous Notes * Telephone Encounter - Wing Nandini RN - 02/23/2024 10:35 AM EDT Tc to pt regarding albuterol refill. Used [employer] [facility] [employer] [place], [place] [id number]. Pt reports feeling much better today with no shortness of breath. Due to recent cold and wet weather has been usingalbuterol 2-3 x a day recently along with Claritin. Pt states she will citrus picker her med refill todayand requested appt with PCP. Scheduled said appt on 03/07 at 11:30 am. Reminded pt that if symptoms of SOB or difficulty breathing reappear to go to ED or call EMS. Pt verbalizes understanding and agreement with plan. * Telephone Encounter - Nilda Esquivel RN - 02/22/2024 1:49 PM EDT Call to Macarena GOMEZ with [employer] [facility] [place] [id number]. Pt reports having asthma sx of cough and some chest tightness. Per pt having to use albuterol more frequently to help with sx but not less [place] 4 hours in between. Per pt has occasional wheezing. 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 No coughing fits. Pt offered appt tomorrow in [facility] or [facility] today. Pt declines as has to citrus picker spouse fromhospital. States can come in on Monday. No appts at time of call. Pt advised will send refill request for albuterol inhaler for review and follow up. Reviewed home care advise, ER precautions and reasons to call back. Protocol Used: Asthma Attack (Adult) Protocol-Based Disposition: See in Office or Video Visit Today or Tomorrow Override (Final) Disposition: Discuss with PCP and Callback by Nurse Today Override Reason: Prescription issue Video visit offer not recorded Positive Triage Question: * Mild wheezing comes and goes and lasts > 3 days * All higher-acuity triage questions were negative Care Advice Discussed: * Reassurance and Education - Mild Asthma Attack * Asthma Attack * Asthma Attack - Symptoms * Avoid Asthma Triggers * Reasons To Call Back - Quick-relief asthma medicine (such as albuterol by inhaler or nebulizer) is needed more often than every 4 hours - You become worse * Telephone Encounter - Chris Aviles - 02/22/2024 1:30 PM EDT Symptom: Asthma Attack - Caller Reports Outcome: Schedule an urgent appointment (within 1 hour) or talk to a nurse or provider soon Reason: Any trouble breathing The caller accepted this outcome Please contact at [phone] sherrie documented in this encounter Plan of Treatment Not on file documented as of this encounter Visit Diagnoses Not on filedocumented in this encounter Additional Health Concerns Assessment Noted Time PHQ-9 Depression Total Score: 9 02/16/20 23 2:25 PM EDT documented as of this encounter Care Teams Brake Lining Finisher Asbestos Relationship Specialty Start Date End Date Rossy Macias MD [address] [place] [address] PCP - General Family Medicine 07/15/14 documented as of this encounter
--- OUTSIDE RECORDS SUMMARY | 2024-12-23 13:46 | XMS_ITS | Encounter Summary ---
Author Organization [employer] Address [address] [place] [address] Care Team Providers Care Scale Tank Operator Name Role Phone Rossy Macias MD Primary Care Provider [phone] Reason for Visit * Reason Onset Date Comments Walk-In 12/23/2024 Encounter Details Date Type Department Care Team ([facility] Contact Info) Description 12/23/2024 Telephone [facility] [address] [place] [address] Rossy Macias MD [address] [place] [address] Walk-In Social History Tobacco Use Types Packs/Day Years Used Date Smoking Tobacco: Never Passive Smoke Exposure: Never Smokeless Tobacco: Never Depression Answer Date [...] encounter Miscellaneous Notes * Telephone Encounter - Zulema Gallego - 12/23/2024 1:05 PM EST Pt sitting in waiting room , states was seen last week for a sinus headache and prescribed meds, ptstates same symptoms not feeling better documented in this encounter Plan of Treatment Not on file documented as of this encounter Visit Diagnoses Not on filedocumented in this encounter Additional Health Concerns Assessment Noted Time PHQ-9 Depression Total Score: 9 02/16/20 23 2:25 PM EDT documented as of this encounter Care Teams Scale Tank Operator Relationship Specialty Start Date End Date Rossy Macias MD [address] [place] [address] PCP - General Family Medicine 07/15/14 documented as of this encounter
--- OUTSIDE RECORDS SUMMARY | 2024-12-23 13:46 | XMS_ITS | Encounter Summary ---
Author Organization [employer] Address [address] [facility] [address] [place] [address] Care Team Providers Care Stockbroker Name Role Phone Rossy Macias MD Primary Care Provider [phone] Reason for Visit * Reason Onset Date Comments Walk-In 12/12/2024 Encounter Details Date Type Department Care Team ([facility] Contact Info) Description 12/12/2024 Telephone [facility] [address] [place] [address] Rossy Macias MD [address] [place] [address] Walk-In Social History Tobacco Use Types Packs/Day [...] * Telephone Encounter - Zulema Gallego - 12/12/2024 3:39 PM EST Headache, sinus pressure documented in this encounter Plan of Treatment Not on file documented as of this encounter Visit Diagnoses Not on filedocumented in this encounter Additional Health Concerns Assessment Noted Time PHQ-9 Depression Total Score: 9 02/16/20 23 2:25 PM EDT documented as of this encounter Care Teams Stockbroker Relationship Specialty Start Date End Date Rossy Macias MD [address] [place] [id number] PCP - General Family Medicine 07/15/14 documented as of this encounter
--- OUTSIDE RECORDS SUMMARY | 2024-12-23 13:46 | XMS_ITS | Clinical Summary ---
Author Organization [employer] Address [address] [facility] 7[address] [place] [address] Care Team Providers Care Local Company Hazmat Driver Name Role Phone Rossy Macias MD Primary Care Provider [phone] Allergies No known active allergies Medications levothyroxine (Synthroid, Levoxyl) 75 MCG tablet Take 1 Tablet by Oral route once 05/03/20 22 Active fluticasone (Flonase) 50 MCG/ACT nasal spray INHALE 2 SPRAYS IN EACH NOSTRIL ONCE DAILY 16 mL 3 05/26/20 23 Active SUMAtriptan (Imitrex) 100 MG tabletIndications: Chronic migraine without aura without status migrainosus, not intractable TAKE 1 TABLET BY MOUTH AT ONSET OF MIGRAINE. MAY REPEAT ONCE AFTER 2 HOURS IF NEEDED. NO MORE THAN TWO TABLETS PER 24 HOURS 9 tablet 3 01/25/20 24 Active Nirmatrelvir&Riton avir 300/100 (Paxlovid, 300/100,) 20 x 150 MG & 10 x 100MG tablet therapy pack Take 300 mg by mouth 2 times daily. Take 3 tablets 2x/day for 5 days 30 each 04/30/20 24 Active levothyroxine (Synthroid, Levoxyl) 75 MCG tabletIndications: Acquired hypothyroidism TAKE ONE TABLET BY MOUTH EVERY DAY 30 tablet 5 07/29/20 24 Active cholecalciferol VITAMIN D (Vitamin D-3) 50 MCG (1999 UT) tablet TAKE ONE TABLET EVERY MORNING 30 tablet 11 11/04/20 24 Active loratadine (Claritin) 10 MG tablet TAKE ONE TABLET EVERY MORNING 30 tablet 11 11/04/20 24 Active Ventolin HFA 108 (90 Base) MCG/ACT inhaler INHALE TWO PUFFS EVERY 4 HOURS NEEDED 18 g 1 12/03/19 25 Active albuterol 108 (90 Base) MCG/ACT inhaler Inhale 2 puffs every 4 (four) hours if needed for wheezing. 18 g 1 04/17/20 24 025 Discontinued Active Problems Problem Noted Date Diagnosed Date Supraventricular tachycardia 12/21/2016 Varicose veins of both lower extremities 017 Varicose veins of lower extremity 12/25/2015 Adjustment disorder with depressed mood in remis saundra 09/16/2015 Acquired hypothyroidism 04/18/2012 Encounters Date Type Department Care Team Description 12/23/2024 Telephone [facility] [address] [place] [address] Rossy Macias MD Walk-In 12/16/2024 3:00 PM EST Office Visit [facility] [address] [place] [address] Gilma Long MD Frontal sinus pain (Primary Dx); Posterior left knee pain 12/16/2024 Travel 12/13/2024 Telephone [facility] [address] [place] [address] Rossy Macias MD No Show 12/12/2024 Telephone [facility] [address] [place] [address] Yoselin Ngo RN Walk-In (Sinus headache, occasional leg pain/) 12/12/2024 Telephone [facility] [address] [place] [address] Rossy Macias MD Walk-In 12/03/2024 Refill [facility] [address] [place] [address] Rossy Macias MD 11/02/2024 Refill [facility] [address] [place] [address] Rossy Macias MD from Last 3 Months Social History Tobacco Use Types Packs/Day Years [...] Orientation Straight 09/19/2022 10 :17 AM EDT Last Filed Vital Signs Vital Sign Reading Time Taken Comments Blood Pressure 110/68 12/16/2024 3:03 PM EST Pulse 80 12/16/2024 3:03 PM EST Temperature 36.5 ??C (97.7 ??F) 12/16/2024 3:03 PM ES T Respiratory Rate 16 12/16/2024 3:03 PM EST Oxygen Saturation 98% 03/20/2024 11:58 AM EDT Inhaled Oxygen Concentration - - Weight 64 kg (141 lb) 12/16/2024 3:03 PM EST Height 165.1 cm (5' 5 ) 12/16/2024 3:03 PM EST Body Mass Index 23.46 12/16/2024 3:03 PM EST Plan of Treatment Health Maintenance Due Date Last Done Comments CT Colonography 1957 Colonoscopy 1957 Colorectal Cancer Screening 1957 FIT DNA/Cologuard 1957 FIT 1957 FOBT 1957 Sigmoidoscopy 1957 Alcohol/Substance Use Screening 1969 Hepatitis C Screening 1975 Pneumococcal Vaccine: 50+ Years (1 of 1 - PCV) 2007 Zoster Vaccines (1 of 2) 2007 RSV Patients and Patients Aged 60 years or older (1 - Risk 60-74 years 1-dose series) 2017 DTaP/Tdap/Td Vaccines (2 - Td or Tdap) 06/27/2022 06/27/2012 Depression Monitoring (PHQ-9) 08/18/2023 02/15/2023, 02/15/2023 Depression Screening 02/16/2024 02/15/2023, 02/16/20 23 COVID-19 Vaccine ( season) 2024 04/01/2022, 10/13/2021, 01/06/2021, Additional history exists Influenza Vaccine (#1) 2024 7, 09/16/2015, 09/09/2014 SDOH Screening 03/13/2025 03/13/2024 Mammogram 04/13/2025 04/13/2023, 07/22, 07/27/2018 Tobacco Screening 12/16/2025 12/16/2024 Lipid Panel 03/20/2029 03/20/2024, 02/15/2023 HIB Vaccines Aged Out No longer eligi ble based on patient's age to complete this topic HPV Vaccines Aged Out No longer eligi ble based on patient's age to complete this topic Hepatitis A Vaccines Aged Out No long er eligible based on patient's age to complete this topic Hepatitis B Vaccines Aged Out No long er eligible based on patient's age to complete this topic IPV Vaccines Aged Out No longer eligi ble based on patient's age to complete this topic Meningococcal Vaccine Aged Out No yung paul eligible based on patient's age to complete this topic RSV under 20 months Aged Out No longe r eligible based on patient's age to complete this topic Rotavirus Vaccines Aged Out No longer eligible based on patient's age to complete this topic Procedures Procedure Name Priority Date/Time Associated Diagnosis Comments LIPID PANEL, STANDARD Routine 03/20/2024 12:39 PM EDT Osteopenia after menopause Acquired hypothyroidism Supraventricular tachycardia (CMS/HCC) Memory impairment of gradual onset BI MAMMOGRAM SCREENING TOMOSYNTHESIS BILATERAL Routine 04/13/2023 1:25 PM EDT from Last 3 Months or Most Recently Relevant to Health Maintenance Results * (ABNORMAL) Lipid Panel, Standard (03/20/2024 12:39 PM EDT) Triglycerides 35 <150 mg/dL [facility] Comment:Desirable Triglyceri de: less than 150 mg/dLBorderline High Triglyceride 150-199 mg/dLHigh Triglyceride: 200-499 mg/dLVery High Triglyceride: greater than or equal to 5OO mg/dL Cholesterol 199 <200 mg/dL [facility] Comment:Desirable Cholestero l: less than 200 mg/dLBorderline High Cholesterol: 200-239 mg/dLHigh Cholesterol: greater than 239 mg/dL LDL Cholesterol Calculated 107(H) <100 mg/dL [facility] Comment:Desirable LDL: less than 100 mg/dLNear Optimal/Above Optimal LDL: 110- 129 mg/dLBorderline High LDL: 130-159 mg/dLHigh LDL: 160-189 mg/dLVery High LDL: greater than or equal to 190 mg/dL HDL Cholesterol 85 >40 mg/dL [facility] Comment:Desirable HDL: great er than 40 mg/dL Note: This HDL assay may give artificially low results in patients with liver disease. Blood Venous blood specimen / Unknown 03/20/2024 12:39 PM EDT 03/20/2024 2:28 PM EDT us Rossy Macias MD LAB BLOOD ORDERABLES Final Re sult [facility] [address] [place] [address] [phone] * BI Mammogram Screening Tomosynthesis Bilateral (04/13/2023 1:25 PM EDT) Anatomical Region Laterality Modality Breast Bilateral Mammography 04/13/2023 1:25 PM EDT Narrative 04/16/2023 12:33 PM EDT ? [facility] ? [address] ?[place] [address] ? Mammography Report ? Signed ? Patient: Piskorz Zyla,Macarena ?MR#: ?? [id number] ? : 1955 ?Acct:[id number] ? Age/Sex: 67 / F ?ADM Date: 04/13/23 ? Loc: HO.MAMMO ? Attending Dr: Rossy Macias MD ? Ordering Physician: Rossy Macias MD ?Results: 2Be ?? nign Findings ? Date of Service: 04/13/23 ?Follow Up: 1 Year From Orig ?? inal Mammogram ? Procedure(s): MM tomosynthesis screening BI ?? Accession Number(s): [id number] ? cc: Rossy Macias MD ? EXAMINATION: ?? MM SCREENING DIGITAL BREAST TOMOSYNTHESIS, BILATERAL ? CLINICAL INFORMATION: ? Screening. Asymptomatic. ? The lifetime risk of breast cancer based on the Tyrer-Cuzick Model is ?? 6%. ? COMPARISON: ?? Mammography: 08/14/2019, 07/26/2018, 01/12/2016 ? TECHNIQUE: ?? Digital breast tomosynthesis is performed in both the craniocaudal and ?? mediolateral oblique views along with computer-aided detection (CAD). ?? Synthesized 2D images are generated from the tomosynthesis. ? FINDINGS: ?? The breasts are heterogeneously dense, which may obscure small masses ?? (ACR BI-RADS breast composition Category c). ? Breast tissue composition borders on average fibroglandular. There are ?? no significant masses, abnormal calcifications, or other abnormalities. ?No architectural abnormality or developing density. Again, there are ?? are stable oval nodules in the bilateral outer quadrants similar to ?? prior studies. The axilla and skin contours are unremarkable. ? MM/MM tomosynthesis screening BI ?? IMPRESSION: ?? No mammographic evidence of malignancy. ? ASSESSMENT: ? BI-RADS 2: Benign ? RECOMMENDATION: ?? Routine annual mammography screening. ? This patient's information was entered into a reminder system with a ?? target due date for their next mammogram. ? Dictated By: ?Thomas Lai MD ? Signed By: ?<Electronically signed by Thomas Lai MD in OV> ?04/16/23 1231 ? DD/ 1325 ? TD/TT: ? Stopperer Assembler: GUTIERRES ? Procedure Note Doncarmenbillieelinter, Image - 05/18/2023 [facility] [address] [place] [address] Mammography Report Signed Patient: Lilly Roa#: [id number] : 8Acct:[id number] Age/Sex: 67 / FADM Date: 04/13/23 Loc: HO.MAMMO Attending Dr: Rossy Macias MD Ordering Physician: Rossy Macias MDResults: 2Be nign Findings Date of Service: 04/13/23Follow Up: 1 Year From Orig inal Mammogram Procedure(s): MM tomosynthesis screening BI Accession Number(s): [id number] cc: Rossy Macias MD EXAMINATION: MM SCREENING DIGITAL BREAST TOMOSYNTHESIS, BILATERAL CLINICAL INFORMATION: Screening. Asymptomatic. The lifetime risk of breast cancer based on the Tyrer-Cuzick Model is 6%. COMPARISON: Mammography: 08/14/2019, 07/26/2018, 01/12/2016 TECHNIQUE: Digital breast tomosynthesis is performed in both the craniocaudal and mediolateral oblique views along with computer-aided detection (CAD). Synthesized 2D images are generated from the tomosynthesis. FINDINGS: The breasts are heterogeneously dense, which may obscure small masses (ACR BI-RADS breast composition Category c). Breast tissue composition borders on average fibroglandular. There are no significant masses, abnormal calcifications, or other abnormalities. No architectural abnormality or developing density. Again, there are are stable oval nodules in the bilateral outer quadrants similar to prior studies. The axilla and skin contours are unremarkable. MM/MM tomosynthesis screening BI IMPRESSION: No mammographic evidence of malignancy. ASSESSMENT: BI-RADS 2: Benign RECOMMENDATION: Routine annual mammography screening. This patient's information was entered into a reminder system with a target due date for their next mammogram. Dictated By: Thomas Lai MD Signed By: <Electronically signed by Thomas Lai MD in OV> 04/16/23 1231 DD/ 1325 TD/TT: Stopperer Assembler: GUTIERRES [facility] External Provider IMG BI PROCEDURES Edited Result - Final from Last 3 Months or Most Recently Relevant to Health Maintenance Insurance [facility] Care Teams Local Company Hazmat Driver Relationship Specialty Start Date End Date Rossy Macias MD [address] [place] [address] PCP - General Family Medicine 07/15/14
--- OUTSIDE RECORDS SUMMARY | 2024-12-23 13:46 | XMS_ITS | Encounter Summary ---
Author Organization [employer] Address [address] [place] [address] Care Team Providers Care Welding Process Engineer Name Role Phone Rossy Macias MD Primary Care Provider [phone] Encounter Details Date Type Department Care Team (Latest Contact Info) Description 12/16/2024 Travel Social History Tobacco Use Types Packs/Day Years [...] AM EDT documented as of this encounter Plan of Treatment Not on file documented as of this encounter Visit Diagnoses Not on filedocumented in this encounter Additional Health Concerns Assessment Noted Time PHQ-9 Depression Total Score: 9 02/16/20 23 2:25 PM EDT documented as of this encounter Care Teams Welding Process Engineer Relationship Specialty Start Date End Date Rossy Macias MD [address] [place] [address] PCP - General Family Medicine 07/15/14 documented as of this encounter
--- OUTSIDE RECORDS SUMMARY | 2024-12-23 13:46 | XMS_ITS | Encounter Summary ---
Author Organization [employer] Address [address] [facility] [address] [place] [address] Care Team Providers Care Library Serials Assistant Name Role Phone Rossy Macias MD Primary Care Provider [phone] Reason for Visit * Reason Comments Med Refill Encounter Details Date Type Department Care Team ([facility] st Contact Info) Description 12/03/2024 Refill [facility] [address] [place] [address] Rossy Macias MD [address] [place] [address] Social History Tobacco Use Types Packs/Day Years [...] documented as of this encounter Care Teams Library Serials Assistant Relationship Specialty Start Date End Date Rossy Macias MD [address] [place] [address] PCP - General Family Medicine 07/15/14 documented as of this encounter
--- OUTSIDE RECORDS SUMMARY | 2024-12-23 13:46 | XMS_ITS | Encounter Summary ---
Author Organization [employer] Address [address] [facility] [address] [place] [address] Care Team Providers Care Litigation Docket Manager Name Role Phone Rossy Macias MD Primary Care Provider [phone] Reason for Visit * Reason Comments Med Refill Encounter Details Date Type Department Care Team ([facility] st Contact Info) Description 10/03/2023 Refill [facility] [address] [place] [address] Rossy Macias MD [address] [place] [address] Social History Tobacco Use Types Packs/Day Years Used Date Smoking Tobacco: Never Assessed Depression Answer Date Recorded Patient Health Questionnaire-9 Score 9 02/15/2023 Housing Stability Answer Date Recorded What is your housing situation today? I have kvng june 09/30/[address] you li ve. Do you have problems with any of the following? None of the above 09/30/2023 Food Insecurity Answer Date Recorded Within the past 12 months, y ou worried that your food would run out before you got money to buy more: Never True 09/30/2023 Within the past 12 months,th e food you bought just didn't last and you didn't have enough money to get more: Never True 09/2023 Transportation Answer Date Recorded In the past 12 months, has l ack of transportation kept you from medical appts, meetings, work or from getting things needed for daily living? No 09/30/2023 Utilities Answer Date Recorded In the past 12 months, has t he electric, gas, oil or water company threatened to shut off services in your home? No 09/30/2023 Depression Answer Date Recorded Patient Health Questionnaire-2 [...] documented as of this encounter Care Teams Litigation Docket Manager Relationship Specialty Start Date End Date Rossy Macias MD [address] [place] [address] PCP - General Family Medicine 07/15/14 documented as of this encounter
== END 2024-12-23 12:28 | disposition home or self-care (01) ==
LOC: HO.XRAY 12:27
PROVIDERS: Visit Provider Internal Medicine
DX: M25.562 Pain in left knee (principal)
CPT/HCPCS: 73560

== ENCOUNTER → 2024-12-23 12:30 | Outpatient (BNV) | payer MEDICARE, SELFPAY | PROVIDERS: Visit Provider Radiology Diagnostic Radiology | DX: I83.812 Varicose veins of left lower extremity with pain (principal) | CPT/HCPCS: 73560 ==

== ENCOUNTER 2025-01-29 08:56 | Outpatient (REF) | payer MEDICARE, SELFPAY ==
--- OUTSIDE RECORDS SUMMARY | 2025-01-29 09:34 | XMS_ITS | Encounter Summary ---
Author Organization [employer] Address [address] [facility] 7t [place] [address] Care Team Providers Care Sports Announcer Name Role Phone Rossy Macias MD Primary Care Provider [phone] Reason for Visit * Reason Onset Date Comments Nurse Triage 01/21/2025 Encounter Details Date Type Department Care Team ([facility] st Contact Info) Description 01/21/2025 Telephone C [facility] [address] [place] [address] Rossy Macias MD [address] [place] [address] Nurse Triage Social History Tobacco Use Types [...] encounter Miscellaneous Notes * Telephone Encounter - Nilda Esquivel RN - 01/21/2025 3:54 PM EST Call to Macarena GOMEZ for triage below with [employer] general cargo clerk line with [employer] retirement administrator ID # [id number]. Pt reports that she continues to have leg pain. Pt believes its related to a venous issue not just arthritis. Per pt having calf pain. This started 3 weeks ago. NO redness, rash or bruising. Having some difficulty with walking. Pt denies any new onset of CP or SOB. Pt advised of disposition , agrees to seek [facility] as no appts with [facility] at time of call .. Reviewed [facility] operating hours and that wait times vary. Reviewed home care advise, ER precautions and reasons to call back. Protocol Used: Leg Pain (Adult) Protocol-Based Disposition: See in Office or Video Visit Today or Tomorrow Video visit offer not recorded Positive Triage Question: * Localized pain, redness or hard lump along vein * All higher-acuity triage questions were negative Care Advice Discussed: * Reasons To Call Back - Signs of infection occur (such as spreading redness, warmth, fever) - You become worse * Telephone Encounter - Priti Mandujano - 01/21/2025 3:46 PM EST Pt walked in stating she has continued leg pain. Pt was seen on Dec [facility] on [facility]. Pt does need an retirement administrator (sherrie). documented in this encounter Plan of Treatment Not on file documented as of this encounter Visit Diagnoses Not on filedocumented in this encounter Additional Health Concerns Assessment Noted Time PHQ-9 Depression Total Score: 9 02/16/20 23 2:25 PM EDT documented as of this encounter Care Teams Sports Announcer Relationship Specialty Start Date End Date Rossy Macias MD [address] [place] [address] PCP - General Family Medicine 07/15/14 documented as of this encounter
--- OUTSIDE RECORDS SUMMARY | 2025-01-29 09:34 | XMS_ITS | Encounter Summary ---
Author Organization [employer] Address [address] [facility] 7t [place] [address] Care Team Providers Care Security Sme Name Role Phone Rossy Macias MD Primary Care Provider [phone] Reason for Visit * Reason Comments Med Refill Encounter Details Date Type Department Care Team ([facility] st Contact Info) Description 10/03/2023 Refill [facility] [address] [place] [address] Rossy Macias MD [address] [place] [address] Social History Tobacco Use Types Packs/Day Years [...] documented as of this encounter Care Teams Security Sme Relationship Specialty Start Date End Date Rossy Macias MD [address] [place] [address] PCP - General Family Medicine 07/15/14 documented as of this encounter
--- OUTSIDE RECORDS SUMMARY | 2025-01-29 09:34 | XMS_ITS | Encounter Summary ---
Author Organization [employer] Address [address] [facility] 7t [place] [address] Care Team Providers Care City Attorney Name Role Phone Rossy Macias MD Primary Care Provider [phone] Reason for Visit * Reason Onset Date Comments Nurse Triage 01/27/2025 Encounter Details Date Type Department Care Team ([facility] st Contact Info) Description 01/27/2025 Telephone C [facility] [address] [place] [address] Rossy Macias MD [address] [place] [address] Nurse Triage Social History Tobacco Use Types [...] Telephone Encounter - Nilda Esquivel RN - 01/27/2025 4:30 PM EDT Call to Macarena GOMEZ for triage below with [employer] spanish language lecturer line with [employer] market research assistant ID # [id number]. Confirms that continues to have left lower leg pain and swelling. No rash or redness of lower leg. No CP or SOB. Pt agrees to PCP appt tomorrow . Protocol Used: Knee Swelling (Adult) Protocol-Based Disposition: See in Office or Video Visit within 3 Days Future Appointments Date Time Provider Department Center 01/28/2025 10:45 AM Rossy Macias MD [facility] Insurance verified as active per Real Time Eligibility in [facility]. Positive Triage Question: * Mild or Moderate swelling (e.g., can't move joint normally, can't do usual activities) (Exceptions: Itchy, localized swelling; swelling is chronic.) * All higher-acuity triage questions were negative Care Advice Discussed: * Reasons To Call Back * Reasons To Call Back - Severe pain - Fever occurs - Looks infected (spreading redness, red streak) - You become worse * Telephone Encounter - Michelle Murray - 01/27/2025 4:22 PM EDT Patient in requesting appt to be seen r/t to left leg increase in pain and swollen, muscle tightness in LLE. Pt states has been getting tx at [facility]. Pt states need further tx for this condition and wants to see pcp. Please call pt at [phone] documented in this encounter Plan of Treatment Not on file documented as of this encounter Visit Diagnoses Not on filedocumented in this encounter Additional Health Concerns Assessment Noted Time PHQ-9 Depression Total Score: 9 02/16/20 23 2:25 PM EDT documented as of this encounter Care Teams City Attorney Relationship Specialty Start Date End Date Rossy Macias MD [address] [place] [address] PCP - General Family Medicine 07/15/14 documented as of this encounter
--- OUTSIDE RECORDS SUMMARY | 2025-01-29 09:34 | XMS_ITS | Encounter Summary ---
Author Organization [employer] Address [address] [facility] [address] [place] [address] Care Team Providers Care Rebar Worker Name Role Phone Rossy Macias MD Primary Care Provider [phone] Encounter Details Date Type Department Care Team (Latest Contact Info) Description 01/28/2025 Travel Social History Tobacco Use Types Packs/Day [...] documented as of this encounter Care Teams Rebar Worker Relationship Specialty Start Date End Date Rossy Macias MD [address] [place] [address] PCP - General Family Medicine 07/15/14 documented as of this encounter
--- OUTSIDE RECORDS SUMMARY | 2025-01-29 09:34 | XMS_ITS | Encounter Summary ---
Author Organization [employer] Address [address] [facility] [address] [place] [address] Care Team Providers Care Blueprint Reader Name Role Phone Rossy Macias MD Primary Care Provider [phone] Reason for Referral * Imaging (Routine) - Authorized Specialty Diagnoses / Procedures Referred By Contac t Referred To Contact Cardiology Diagnoses Pain and swelling of knee, left Left leg swelling Procedures Vascular US lower extremity venous duplex left Rossy Macias MD [address] [place] [address] Phone: tel: fax: [address] Phone: tel: fax: Referral ID Status Reason Start Date Expiration Date Visits Requested Visits Authorized [id number] Authorized Perform Procedure 01/28/2025 01/28/2026 1 1 Encounter Details Date Type Department Care Team (Late st Contact Info) Description 01/28/2025 10:45 AM EDT Office Visit [facility] [address], [place] [phone] Rossy Macias MD [address], [place] [phone] Pain and swelling of knee, left (Primary Dx); Acquired hypothyroidism; Left leg swelling Social History Tobacco Use Types Packs/Day Years Used Date Smoking Tobacco: Never Passive Smoke Exposure: Never Smokeless Tobacco: Never Depression Answer Date Recorded Patient Health Questionnaire-9 Score 9 02/15/2023 Housing Stability Answer Date Recorded What is your housing situation today? I have kvng sing 03/13/[address] you li [...] Sign Reading Time Taken Comments Blood Pressure 111/72 01/28/2025 11:10 AM EDT Pulse 91 01/28/2025 11:10 AM EDT Temperature 36.5 ??C (97.7 ??F) 01/28/2025 11:10 AM E DT Respiratory Rate 16 01/28/2025 11:10 AM EDT Oxygen Saturation - - Inhaled Oxygen Concentration - - Weight 63 kg (139 lb) 01/28/2025 11:10 AM EDT Height 165.1 cm (5' 5 ) 01/28/2025 11:10 AM EDT Body Mass Index 23.13 01/28/2025 11:10 AM EDT documented in this encounter Progress Notes * Rossy Macias MD - 01/28/2025 10:45 AM EDT Subjective Patient ID: Macarena Yao GOMEZ is a 69 y.o. female who presents for persistent left leg/knee pain. Macarena is a 69 y/o healthy female patient of mine here for persistent left leg/knee pain.Saw in WIC at [facility] on 01/21/25 and was given meloxicam to take prn pain with food. Patient states she did not start taking it because she was unsure what it was for. Denies any falls or trauma toknee. Denies any fevers or rash. Left knee is swollen and on ambulation. Patient is usually very active. Review of Systems Constitutional: Negative for activity change, chills, fever and unexpected weight change. Respiratory: Negative for cough, shortness of breath and wheezing. Cardiovascular: Negative for chest pain, palpitations and leg swelling. Gastrointestinal: Negative for abdominal pain and blood in stool. Endocrine: Negative for polydipsia and polyuria. Genitourinary: Negative for decreased urine volume, difficulty urinating, dysuria and hematuria. Musculoskeletal: Positive for arthralgias and joint swelling. Negative for gait problem. Skin: Negative for color change and rash. Neurological: Negative for dizziness and headaches. Hematological: Negative for adenopathy. Psychiatric/Behavioral: Negative for dysphoric mood, hallucinations, sleep disturbance and suicidalideas. The patient is not nervous/anxious. Objective BP 111/72 (BP Location: Left arm, Patient Position: Sitting, BP Cuff Size: Adult) Pulse91 Temp 97.7 ??F (36.5 ??C) (Oral) Resp 16 Ht 5' 5 (1.651 m) Wt 139 lb (63 kg) BMI 23.13kg/m?? Physical Exam Vitals reviewed. Constitutional: General: She is not in acute distress. Appearance: Normal appearance. She is not ill-appearing. HENT: Head: Normocephalic. Right Ear: Tympanic membrane and ear canal normal. Left Ear: Tympanic membrane and ear canal normal. Nose: Nose normal. Mouth/Throat: Mouth: Mucous membranes are moist. Pharynx: No oropharyngeal exudate or posterior oropharyngeal erythema. Eyes: Extraocular Movements: Extraocular movements intact. Conjunctiva/sclera: Conjunctivae normal. Pupils: Pupils are equal, round, and reactive to light. Cardiovascular: Rate and Rhythm: Normal rate and regular rhythm. Pulses: Normal pulses. Heart sounds: Normal heart sounds. Pulmonary: Effort: Pulmonary effort is normal. No respiratory distress. Breath sounds: Normal breath sounds. Abdominal: Palpations: Abdomen is soft. Musculoskeletal: General: Normal range of motion. Cervical back: Normal range of motion. Left knee: Swelling and deformity present. No erythema or crepitus. Normal range of motion. No LCL laxity, MCL laxity or ACL laxity.Normal pulse. Skin: General: Skin is warm. Capillary Refill: Capillary refill takes less than 2 seconds. Findings: No rash. Neurological: General: No focal deficit present. Mental Status: She is alert and oriented to person, place, and time. Psychiatric: Mood and Affect: Mood normal. Behavior: Behavior normal. Thought Content: Thought content normal. Judgment: Judgment normal. Assessment/Plan Diagnoses and all orders for this visit: Pain and swelling of knee, left Comments: Osteoarthritis most likely diagnosis. X-ray report reviewed. Check labs including Lyme disease test, sed rate,RF,cbc,etc.. Take meloxicam as needed. Hurt's cyst is also a possibility. Ultrasound of left leg will be ordered. Orders: - Lipid Panel, Standard; Future - Basic Metabolic Panel, Fasting; Future - CBC auto differential; Future - Sed Rate by Modified Emilyren; Future - Rheumatoid Factor; Future - TSH W/Reflex to FT4; Future - Hepatic Function Panel; Future - RUTH Screen,IFA, with Reflex to Titer and Pattern; Future - Lyme Disease Ab with Reflex to Blot (IgG, IgM); Future - Uric acid; Future Acquired hypothyroidism Comments: Levothyroxine daily. Recheck TFTs tomorrow morning dose if needed. Call patient with result when available. documented in this encounter Plan of Treatment Scheduled Orders Name Type Priority Associated Diagnoses Orde r Schedule Lipid Panel, Standard Lab Routine Pain and swelling of knee, left Expected: 01/28/2025 (Approximate), Expires: 01/28/2026 Basic Metabolic Panel, Fasting Lab Routine Pain and swelling of knee, left Expected: 01/28/2025 (Approximate), Expires: 01/28/2026 CBC auto differential Lab Routine Pain and swelling of knee, left Expected: 01/28/2025 (Approximate), Expires: 01/28/2026 Sed Rate by Modified Westergren Lab Routine Pain and swelling of knee, left Expected: 01/28/2025, Expires: 01/28/2026 Rheumatoid Factor Lab Routine Pain and swelling of knee, left Expected: 01/28/2025, Expires: 01/28/2026 TSH W/Reflex to FT4 Lab Routine Pain and swelling of knee, left Expected: 01/28/2025 (Approximate), Expires: 01/28/2026 Hepatic Function Panel Lab Routine Pain and swelling of knee, left Expected: 01/28/2025 (Approximate), Expires: 01/28/2026 RUTH Screen,IFA, with Reflex to Titer and Pattern Lab Routine Pain and swelling of knee, left Expected: 01/28/2025 (Approximate), Expires: 01/28/2026 Lyme Disease Ab with Reflex to Blot (IgG, IgM) Lab Routine Pain and swelling of knee, left Expected: 01/28/2025, Expires: 01/28/2026 Uric acid Lab Routine Pain and swelling of knee, left Expected: 01/28/2025 (Approximate), Expires: 01/28/2026 documented as of this encounter Visit Diagnoses Diagnosis Pain and swelling of knee, left- Primary Acquired hypothyroidism Unspecified hypothyroidism Left leg swelling documented in this encounter Additional Health Concerns Assessment Noted Time PHQ-9 Depression Total Score: 9 02/16/20 23 2:25 PM EDT documented as of this encounter Care Teams Blueprint Reader Relationship Specialty Start Date End Date Rossy Macias MD [address] [place] [phone] PCP - General Family Medicine 07/15/14 documented as of this encounter
--- OUTSIDE RECORDS SUMMARY | 2025-01-29 09:34 | XMS_ITS | Encounter Summary ---
Author Organization [employer] Address [address] [facility] [address] [place] [address] Care Team Providers Care Complaint Evaluation Supervisor Name Role Phone Rossy Macias MD Primary Care Provider [phone] Reason for Referral * Consultation (Routine) - Closed Specialty Diagnoses / Procedures Referred By Nguyen machado Referred To Contact Physical Therapy Diagnoses Primary osteoarthritis of left knee Mikaela Rosado MD [address] [place] [phone] Phone: tel: fax: Physical Therapy, AT [address] [place] [address] [address] [place], [place] Phone: tel: fax: Referral ID Status Reason Start Date Expiration Date V isits Requested Visits Authorized [id number] Closed Specialty Services Required 01/21/2025 01/21/2026 1 1 Reason for Visit * Reason Comments Leg Pain Encounter Details Date Type Department Care Team (Latest Contact Info) Description 01/21/2025 6:20 PM EST Office Visit [facility] [address] [place] [phone] Mikaela Rosado MD [address] [place] [phone] Primary osteoarthritis of left knee (Primary Dx); Varicose veins of both lower extremities with pain Social History Tobacco Use Types Packs/Day [...] Sign Reading Time Taken Comments Blood Pressure 114/74 01/21/2025 6:15 PM EST Pulse 80 01/21/2025 6:15 PM EST Temperature 36.6 ??C (97.9 ??F) 01/21/2025 6:15 PM ES T Respiratory Rate 20 01/21/2025 6:15 PM EST Oxygen Saturation - - Inhaled Oxygen Concentration - - Weight 64.9 kg (143 lb) 01/21/2025 6:15 PM EST Height 165.1 cm (5' 5 ) 01/21/2025 6:15 PM EST Body Mass Index 23.8 01/21/2025 6:15 PM EST documented in this encounter Progress Notes * Mikaela Rosado MD - 01/21/2025 6:20 PM EST Blood x 2 weeksSUBJECTIVE: Macarena GOMEZ is a 69 y.o. year old female who presents for Walk In Center/leg pain . Denies recent illness, injury, or hospitalization. Interview done with [employer] assistant provided by [employer] assistant phone service ID # [id number] Acute Concerns: Patient complaining of left leg and knee pain for the past 2 weeks that has progressively limit herability to walk for more than 2 - 3 blocks. She has noticed some left knee edema and painful varicosities. She had varicose vein surgery several years ago and occasionally wears compression stockingsbut they are worn out now. She has not had any recent falls or accidents. Social History Social History Narrative Not on file Patient Active Problem List Diagnosis Adjustment disorder with depressed mood in remission Acquired hypothyroidism Supraventricular tachycardia (CMS/HCC) Varicose veins of lower extremity Varicose veins of both lower extremities Primary osteoarthritis of left knee No family history on file. Review of Systems Constitutional: Negative for chills, fatigue and fever. HENT: Negative for congestion, ear pain, nosebleeds, rhinorrhea, sinus pressure, sore throat and trouble swallowing. Eyes: Negative for pain and discharge. Respiratory: Negative for cough, chest tightness and shortness of breath. Cardiovascular: Negative for chest pain, palpitations and leg swelling. Gastrointestinal: Negative for abdominal pain, blood in stool, constipation, diarrhea and nausea. Endocrine: Negative for polydipsia and polyuria. Genitourinary: Negative for dysuria, frequency, genital sores, pelvic pain and vaginal discharge. Musculoskeletal: Positive for arthralgias and gait problem. Negative for back pain and neck pain. Skin: Negative for rash. Allergic/Immunologic: Negative for environmental allergies. Neurological: Negative for dizziness, seizures, weakness, light-headedness and headaches. Hematological: Negative for adenopathy. Psychiatric/Behavioral: Negative for agitation, behavioral problems, self-injury and suicidal ideas. OBJECTIVE: Vitals: 01/21/25 1815 BP: 114/74 Pulse: 80 Resp: 20 Temp: 97.9 ??F (36.6 ??C) Physical Exam HENT: Right Ear: Tympanic membrane and ear canal normal. Left Ear: Tympanic membrane and ear canal normal. Mouth/Throat: Mouth: Mucous membranes are moist. Pharynx: No oropharyngeal exudate or posterior oropharyngeal erythema. Eyes: Pupils: Pupils are equal, round, and reactive to light. Cardiovascular: Rate and Rhythm: Regular rhythm. Pulses: Normal pulses. Heart sounds: Normal heart sounds. No murmur heard. Comments: BL varicosities L>R, no skin changes or ulcers Pulmonary: Breath sounds: Normal breath sounds. Abdominal: General: Bowel sounds are normal. Palpations: Abdomen is soft. Tenderness: There is no abdominal tenderness. Musculoskeletal: General: Normal range of motion. Cervical back: Neck supple. Right knee: Crepitus present. Left knee: Swelling (pre patellar), bony tenderness (tibial tuberosity) and crepitus present. Tenderness present over the medial joint line and MCL. Skin: General: Skin is warm. Neurological: General: No focal deficit present. Mental Status: She is alert and oriented to person, place, and time. Psychiatric: Mood and Affect: Mood normal. Behavior: Behavior normal. Problem List Items Addressed This Visit Primary osteoarthritis of left knee - Primary Patient to start meloxicam 15 mg daily x 1 or 2 weeks as long as she is on pain, she can take Tylenol 500 mg every 6 hours as needed breakthrough pain. Referred to PT Will do left lower extremity ultrasound if symptoms do not improve, rule out Bakers cyst Relevant Orders Referral to Physical Therapy Varicose veins of lower extremity Advised to wear compression stockings and follow-up with PCP Follow Up: Current Outpatient Medications on File Prior to Visit Medication Sig Dispense Refill cholecalciferol VITAMIN D (Vitamin D-3) 50 MCG (2000 UT) tablet TAKE ONE TABLET EVERY MORNING 30 tablet 11 fluticasone (Flonase) 50 MCG/ACT nasal spray Administer 1 spray into each nostril Once per day. Shake gently. Before first use, prime pump. After use, clean tip and replace cap. 16 mL 3 levothyroxine (Synthroid, Levoxyl) 75 MCG tablet Take 1 Tablet by Oral route once levothyroxine (Synthroid, Levoxyl) 75 MCG tablet TAKE ONE TABLET BY MOUTH EVERY DAY 30 tablet 5 loratadine (Claritin) 10 MG tablet TAKE ONE TABLET EVERY MORNING 30 tablet 11 SUMAtriptan (Imitrex) 100 MG tablet TAKE 1 TABLET BY MOUTH AT ONSET OF MIGRAINE. MAY REPEAT ONCE AFTER 2 HOURS IF NEEDED. NO MORE THAN TWO TABLETS PER 24 HOURS 9 tablet 3 Ventolin HFA 108 (90 Base) MCG/ACT inhaler INHALE TWO PUFFS EVERY 4 HOURS NEEDED 18 g 1 [DISCONTINUED] Diclofenac Sodium 1 % gel Apply small amount topically daily prn pain 100 g 11 No current facility-administered medications on file prior to visit. * Gabriela Rayo RN - 01/21/2025 6:20 PM EST Images from the original note were not included. DME order faxed to [facility] [employer] and confirmation received; placed in [facility] scan bin to be scanned to chart. Mikaela Rosado MD [facility] Please write a rx for compression stockings 15-20 mmHg documented in this encounter Miscellaneous Notes * Assessment & Plan Note - Mikaela Rosado MD - 01/21/2025 6:59 PM EST Associated Problem(s): Primary osteoarthritis of left knee Patient to start meloxicam 15 mg daily x 1 or 2 weeks as long as she is on pain, she can take Tylenol 500 mg every 6 hours as needed breakthrough pain. Referred to PT Will do left lower extremity ultrasound if symptoms do not improve, rule out Bakers cyst * Assessment & Plan Note - Mikaela Rosado MD - 01/21/2025 6:58 PM EST Associated Problem(s): Varicose veins of lower extremity Advised to wear compression stockings and follow-up with PCP documented in this encounter Plan of Treatment Scheduled Referrals Name Type Priority Associated Diagnoses Orde r Schedule Referral to Physical Therapy Outpatient Referral Routine Primary osteoarthritis of left knee Expected: 01/21/2025 (Approximate), Expires: 01/21/2026 documented as of this encounter Visit Diagnoses Diagnosis Primary osteoarthritis of left knee- Primary Varicose veins of both lower extremities with pain documented in this encounter Additional Health Concerns Assessment Noted Time PHQ-9 Depression Total Score: 9 02/16/20 23 2:25 PM EDT documented as of this encounter Care Teams Complaint Evaluation Supervisor Relationship Specialty Start Date End Date Rossy Macias MD [address] [place] [id number] PCP - General Family Medicine 07/15/14 documented as of this encounter
--- OUTSIDE RECORDS SUMMARY | 2025-01-29 09:34 | XMS_ITS | Clinical Summary ---
Author Organization [employer] Address [address] [facility] [address] [place] [address] Care Team Providers Care Stabilizer Operator Name Role Phone Rossy Macias MD Primary Care Provider [phone] Allergies No known active allergies Medications levothyroxine (Synthroid, Levoxyl) 75 MCG tablet Take 1 Tablet by Oral route once 05/03/20 22 Active SUMAtriptan (Imitrex) 100 MG tabletIndications: Chronic migraine without aura without status migrainosus, not intractable TAKE 1 TABLET BY MOUTH AT ONSET OF MIGRAINE. MAY REPEAT ONCE AFTER 2 HOURS IF NEEDED. NO MORE THAN TWO TABLETS PER 24 HOURS 9 tablet 3 01/25/20 24 Active levothyroxine (Synthroid, Levoxyl) 75 MCG [...] NEEDED 18 g 1 12/03/19 25 Active fluticasone (Flonase) 50 MCG/ACT nasal sprayIndications:A cute frontal sinusitis, recurrence not specified Administer 1 spray into each nostril Once per day. Shake gently. Before first use, prime pump. After use, clean tip and replace cap. 16 mL 3 12/23/19 25 Active meloxicam (Mobic) 15 MG tablet Take 1 tablet (15 mg) by mouth Once per day. 15 tablet 01/22/20 25 026 Active acetaminophen (Tylenol Extra Strength) 500 MG tablet Take 1 tablet (500 mg) by mouth every 6 (six) hours if needed for mild pain. 120 tablet 01/22/20 25 025 Active Diclofenac Sodium 1 % gel Apply small amount topically daily prn pain 100 g 11 12/25/19 25 025 Discontin ued(Ineff ective) Active Problems Problem Noted Date Diagnosed Date Primary osteoarthritis of left knee 01/21/2025 Assessment & Plan (01/21/2025 6:59 PM EST): Patient to start meloxicam 15 mg daily x 1 or 2 weeks as long as she is on pain, she can take Tylenol 500 mg every 6 hours as needed breakthrough pain. Referred to PT Will do left lower extremity ultrasound if symptoms do not improve, rule out Bakers cyst Supraventricular tachycardia 12/21/2016 Varicose veins of both lower extremities 017 Varicose veins of lower extremity 12/25/2015 Assessment & Plan (01/21/2025 6:58 PM EST): Advised to wear compression stockings and follow-up with PCP Adjustment disorder with depressed mood in remis saundra 09/16/2015 Acquired hypothyroidism 04/18/2012 Encounters Date Type Department Care Team Description 01/28/2025 10:45 AM EDT Office Visit [facility] [address] [place] [address] Rossy Macias MD Pain and swelling of knee, left (Primary Dx); Acquired hypothyroidism; Left leg swelling 01/28/2025 Travel 01/27/2025 Telephone [facility] [address] [place] [address] Rossy Macias MD Nurse Triage 01/21/2025 6:20 PM EST Office Visit [facility] [address] [place] [address] [phone] Mikaela Rosado MD Primary osteoarthritis of left knee (Primary Dx); Varicose veins of both lower extremities with pain 01/21/2025 Telephone [facility] [address] [place] [address] Rossy Macias MD Nurse Triage 12/25/2024 Orders Only [facility] [address] [place] [phone] Rossy Macias MD 12/25/2024 Telephone [facility] MEDIC[facility] [address] [place] [phone] Yoselin Sher, SUSAN 12/23/2024 5:00 PM EST Office Visit [facility] [address] [place] [phone] Phyllis Dodd NP Acute frontal sinusitis, recurrence not specified (Primary Dx) 12/23/2024 Telephone [facility] [address] [place] [address] Rossy Macias MD Walk-In 12/16/2024 3:00 PM EST Office Visit [facility] [address] [place] [address] Gilma Long MD Frontal sinus pain (Primary Dx); Posterior left knee pain 12/16/2024 Travel 12/13/2024 Telephone [facility] [address] [place] [address] Rossy Macias MD No Show 12/12/2024 Telephone [facility] [address] [place] [address] Yoselin Ngo, SUSAN Walk-In (Sinus headache, occasional leg pain/) 12/12/2024 Telephone [facility] [address] [place] [address] Rossy Macias MD Walk-In 12/03/2024 Refill [facility] [address] [place] [address] Rossy Macias MD 11/02/2024 Refill [facility] [address] [place] [address] Rossy Macias MD from Last 3 Months [...] 16 01/28/2025 11:10 AM EDT Oxygen Saturation 97% 12/23/2024 5:24 PM EST Inhaled Oxygen Concentration - - Weight 63 kg (139 lb) 01/28/2025 11:10 AM EDT Height 165.1 cm (5' 5 ) 01/28/2025 11:10 AM EDT Body Mass Index 23.13 01/28/2025 11:10 AM EDT Plan of Treatment Health Maintenance Due Date Last Done Comments CT Colonography 1955 Colonoscopy 1955 Colorectal Cancer Screening 1955 FIT DNA/Cologuard 1957 FIT 1957 FOBT 1957 Sigmoidoscopy 1957 Alcohol/Substance Use Screening 1969 Hepatitis C Screening 1975 Pneumococcal Vaccine: 50+ Years (1 of 1 - PCV) 2007 Zoster Vaccines (1 of 2) 2007 DTaP/Tdap/Td Vaccines (2 - Td or Tdap) 06/27/2022 06/27/2012 Depression Monitoring (PHQ-9) 08/18/2023 02/15/2023, 02/15/2023 Depression Screening 02/16/2024 02/15/2023, 02/16/20 23 COVID-19 Vaccine ( season) 2024 04/01/2022, 10/13/2021, 01/06/2021, Additional history exists Influenza Vaccine (#1) 2024 7, 09/16/2015, 09/09/2014 SDOH Screening 03/13/2025 03/13/2024 Mammogram 04/13/2025 04/13/2023, 07/22, 07/27/2018 Tobacco Screening 01/28/2026 01/28/2025 Lipid Panel 03/20/2029 03/20/2024, 02/15/2023 RSV Patients and Patients Aged 60 years or older (1 - 1-dose 75+ series) 2032 HIB Vaccines Aged Out No longer eligi [...] Procedure Name Priority Date/Time Associated Diagnosis Comments POCT INFLUENZA B Routine 12/23/2024 6:39 PM EST Acute frontal sinusitis, recurrence not specified POCT INFLUENZA A Routine 12/23/2024 6:39 PM EST Acute frontal sinusitis, recurrence not specified POCT RAPID COVID ANTIGEN Routine 12/23/2024 6:39 PM EST Acute frontal sinusitis, recurrence not specified XR KNEE 1-2 VIEWS LEFT Routine 1:47 PM EST Posterior left knee pain LIPID PANEL, STANDARD Routine 03/20/2024 12:39 PM EDT Osteopenia after menopause Acquired hypothyroidism Supraventricular tachycardia (CMS/HCC) Memory impairment of gradual onset BI MAMMOGRAM SCREENING TOMOSYNTHESIS BILATERAL Routine 04/13/2023 1:25 PM EDT from Last 3 Months or Most Recently Relevant to Health Maintenance Results * POCT Rapid COVID Ag (12/23/2024 6:39 PM EST) Pathologist [facility] Rapid COVID Ag Negative QC Media Lot # [id number] Lot# Expiration Date Swab 12/23/2024 6:39 PM EST [facility] POINT OF CARE TEST ENTER/EDIT O RDERABLES Final Result * POCT Influenza B manually resulted (12/23/2024 6:39 PM EST) [facility] Rapid Influenza B Ag Negative Negative, Indeterminate QC Media Lot # [id number] Lot# Expiration Date ,026 Swab 12/23/2024 6:39 PM EST [facility] AUDIO VISUAL TECHNICIAN POINT OF CARE TEST ENTER/EDIT O RDERABLES Final Result * POCT Influenza A manually resulted (12/23/2024 6:39 PM EST) [facility] Rapid Influenza A Ag Negative Negative, Indeterminate QC Media Lot # [id number] Lot# Expiration Date [id number] Swab Nasopharyngeal structure / Unknown 12/23/2024 6:39 PM EST Phyllis Dodd AUDIO VISUAL TECHNICIAN POINT OF CARE TEST ENTER/EDIT O RDERABLES Final Result * XR Knee 1-2 Views Left (12/23/2024 1:47 PM EST) Anatomical Region Laterality Modality Lower Extremities, Knee Left Radiogra phic Imaging 12/23/2024 1:47 PM EST Narrative 12/23/2024 1:49 PM EST ? [facility] ?[address] ?[place] [address] ?XRay Report ? Signed ? Patient: Piskorz Zyla,Macarena ?MR#: ?? [id number] ? : 1955 ?Acct:[id number] ? Age/Sex: 69 / F ?ADM Date: 12/23/24 ? Loc: HO.XRAY ? Attending Dr: Gilma Long MD ? Ordering Physician: Gilma Long MD ?? Date of Service: 12/23/24 ?? Procedure(s): XR knee LT 2V ?? Accession Number(s): [id number] ? cc: Gilma Long MD ? CLINICAL HISTORY: 3 WEEKS OF POSTERIOR KNEE PAIN,WITH FLEXION,MILD INSTABILITY ? 2 view left knee ? Comparison: None ? Findings: ?? No fractures or dislocations. ?? Mild arthritic change of the medial knee compartment. ?? No joint effusion. ?? No radiopaque foreign body. ?? There are varices within the medial aspect of the visualized left lower ?? extremity. ? IMPRESSION: ?? 1. No acute findings. ? This document has been electronically signed by: Yoselin Robert MD on ?? 12/23/2024 13:47:47 ? Dictated By: ?Yoselin Robert MD ? Signed By: ?<Electronically signed by Yoselin Robert MD in OV> ? 12/23/24 1348 ? DD/ 1347 ? TD/TT: 12/23/24 1347 ? Cause Analyst: ? Procedure Note Patrick, Image - 12/23/[address] [address] XRay Report Signed Patient: Macarena Roa#: [id number] : 8Acct:[id number] Age/Sex: 69 / FADM Date: 12/23/24 Loc: HO.XRAY Attending Dr: Gilma Long MD Ordering Physician: Gilma Long MD Date of Service: 12/23/24 Procedure(s): XR knee LT 2V Accession Number(s): [id number] cc: Gilma Long MD CLINICAL HISTORY: 3 WEEKS OF POSTERIOR KNEE PAIN,WITH FLEXION,MILDINSTABILITY 2 view left knee Comparison: None Findings: No fractures or dislocations. Mild arthritic change of the medial knee compartment. No joint effusion. No radiopaque foreign body. There are varices within the medial aspect of the visualized left lower extremity. IMPRESSION: 1. No acute findings. This document has been electronically signed by: Yoselin Robert MD on 12/23/2024 13:47:47 Dictated By: Yoselin Robert MD Signed By: <Electronically signed by Yoselni Robert MD in OV> 12/23/24 1348 DD/ 1347 TD/TT: 12/23/24 1347 Cause Analyst: Gilma Long MD IMG XR PROCEDURES Final Resul t * (ABNORMAL) Lipid Panel, Standard (03/20/2024 12:39 PM EDT) Triglycerides 35 <150 mg/dL [facility] Comment:Desirable Triglyceri de: less than 150 mg/dLBorderline High Triglyceride 150-199 mg/dLHigh Triglyceride: 200-499 mg/dLVery High Triglyceride: greater than or equal to 5OO mg/dL Cholesterol 199 <200 mg/dL [facility] Comment:Desirable Cholestero l: less than 200 mg/dLBorderline High Cholesterol: 200-239 mg/dLHigh Cholesterol: greater than 239 mg/dL LDL Cholesterol Calculated 107(H) <100 mg/dL [facility] Comment:Desirable LDL: less than 100 mg/dLNear Optimal/Above Optimal LDL: 110- 129 mg/dLBorderline High LDL: 130-159 mg/dLHigh LDL: 160-189 mg/dLVery High LDL: greater than or equal to 190 mg/dL HDL Cholesterol 85 >40 mg/dL [facility] Comment:Desirable HDL: great er than 40 mg/dL Note: This HDL assay may give artificially low results in patients with liver disease. Blood Venous blood specimen / Unknown 03/20/2024 12:39 PM EDT 03/20/2024 2:28 PM EDT us Rossy Macias MD LAB BLOOD ORDERABLES Final Re sult [facility] [address] [place] [address] [phone] * BI Mammogram Screening Tomosynthesis Bilateral (04/13/2023 1:25 PM EDT) Anatomical Region Laterality Modality Breast Bilateral Mammography 04/13/2023 1:25 PM EDT Narrative 04/16/2023 12:33 PM EDT ? [facility] [place] ? [address] ?[place] [address] ? Mammography Report ? Signed ? Patient: Piskorz Zyla,Macarena ?MR#: ?? [id number] ? : 1955 ?Acct:[id number] ? Age/Sex: 67 / F ?ADM Date: 05/25/23 ? Loc: HO.MAMMO ? Attending Dr: Rossy Macias MD ? Ordering Physician: Rossy Macias MD ?Results: 2Be ?? nign Findings ? Date of Service: 04/13/23 ?Follow Up: 1 Year From Orig ?? inal Mammogram ? Procedure(s): MM tomosynthesis screening BI ?? Accession Number(s): [id number] ? cc: Rossy Macias MD ? EXAMINATION: [...] signed by Thomas Lai MD in OV> ?05/28/ 1231 ? DD/DT: 05/25/ 1325 ? TD/TT: ? Cause Analyst: GUTIERRES ? Procedure Note Donotuseinterpreter, Image - 05/18/2023 [facility] [address] [place] [address] Mammography Report Signed Patient: Macarena RoaMR#: [id number] : 8Acct:[id number] Age/Sex: 67 / FADM Date: 04/13/23 Loc: HO.MAMMO Attending Dr: Rossy Macias MD Ordering Physician: Rossy Macias MDResults: 2Be nign Findings Date of Service: 04/13/23Follow Up: 1 Year From Orig inal Mammogram Procedure(s): MM tomosynthesis screening BI Accession Number(s): [id number] cc: Rossy Macias MD EXAMINATION: MM SCREENING [...] in OV> 04/16/23 1231 DD/ 1325 TD/TT: Cause Analyst: BHAVIK [facility] External Provider IMG BI PROCEDURES Edited Result - Final from Last 3 Months or Most Recently Relevant to Health Maintenance Insurance [facility] Care Teams Stabilizer Operator Relationship Specialty Start Date End Date Rossy Macias MD [address] [place] [id number] PCP - General Family Medicine 07/15/14
[2025-01-29 14:25] LABS: MANUAL DIFF FLAG NO
[2025-01-29 14:35] LABS: Basophils Percent Auto 0.8 % (0-2); Eosinophils Absolute Auto 0.3 X10*3/uL (0.0-0.4); Eosinophils Percent Auto 5.6 % (0-4); Hemoglobin 11.6 g/dl (12.0-16.0); Imm Gran Abs Auto 0.01 X10*3/uL (0.00-0.03); Imm Gran Pct Auto 0.2 % (0.0-0.4); Lymphocytes Absolute Auto 1.9 X10*3/uL (1.2-4.9); Lymphocytes Percent Auto 38.5 % (20-40); Mean Corpuscular HGB Conc 33.1 g/dl (31.0-35.0); Mean Corpuscular Hemoglobin 30.6 pg (27.0-33.0); Mean Corpuscular Volume 92.3 fL (80.0-98.0); Monocytes Absolute Auto 0.3 X10*3/uL (0.1-1.2); Neutrophils Absolute Auto 2.3 x10*3/uL (2.0-8.3); Neutrophils Percent Auto 47.9 % (45-73); Platelet Count 247 X10*3/uL (160-400); Red Blood Count 3.79 X10*6/uL (4.20-5.50); Red Cell Distribution Width 12.4 % (11.0-16.0); White Blood Count 4.8 X10*3/uL (4.8-10.8)
[2025-01-29 14:48] LABS: Rheumatoid Factor < 13.0 IU/mL (<15.0)
[2025-01-29 15:41] LABS: Erythrocyte Sedimentation Rate 5 MM/HR (0-20)
[2025-01-29 17:25] LABS: Alanine Aminotransferase 16 U/L (0-31); Albumin Level 3.9 g/dL (3.5-5.0); Alkaline Phosphatase 84 U/L (39-117); Anion Gap 11 (12-20); Aspartate Amino Transferase 25 U/L (5-31); Bilirubin Direct 0.2 mg/dL (0.0-0.5); Bilirubin Total 0.6 mg/dL (0.0-1.0); Blood Urea Nitrogen 20 mg/dL (9-16); Calcium 8.7 mg/dL (8.4-10.2); Carbon Dioxide 22 mmol/L (22-29); Chloride 112 mmol/L (96-108); Cholesterol 201 mg/dL (<200); Estimated Glomerular Filt Rate > 60; Glucose Fasting 94 mg/dL (60-99); HDL Cholesterol 84 mg/dL (>40); LDL Cholesterol Calculated 110 mg/dL (<100); Potassium 4.1 mmol/L (3.3-5.1); Sodium 141 mmol/L (135-145); TSH reflex Free T4 2.29 uIU/mL (0.32-4.0); Total Protein 6.6 g/dL (6.5-8.0); Triglycerides 37 mg/dL (<150)
[2025-01-29 17:36] LABS: Uric Acid 4.1 mg/dL (2.4-5.7)
[2025-01-30 09:07] LABS: Lyme Abs Screen <0.90 index
[2025-02-04 11:19] LABS: Anti Nuclear Antibody Screen NEGATIVE (NEGATIVE)
== END 2025-01-29 08:57 | disposition home or self-care (01) ==
LOC: HO.CHCLDS 08:56
PROVIDERS: Visit Provider Pediatrics
DX: M25.562 Pain in left knee (principal); M25.462 Effusion, left knee; Z13.6 Encounter for screening for cardiovascular disorders
CPT/HCPCS: 36415; 80048; 80061; 80076; 84443; 84550; 85025; 85652; 86038; 86431; 86617; 86618

== ENCOUNTER 2025-02-24 14:39 | Outpatient (REF) | payer MEDICARE, SELFPAY ==
--- NOTE | ~2025-02-24 | US_ITS ---
EXAMINATION: ULTRASOUND EXTREMITY, NONVASCULAR.. CLINICAL INFORMATION: Pain and swelling, popliteal region left lower extremity. TECHNIQUE: Real-time grayscale and color Doppler technique ultrasound performed in the popliteal region left lower extremity with a linear transducer. COMPARISON: None FINDINGS: There is a 5 x 3.8 x 1.2 cm lobulated anechoic lesion without flow on color Doppler interrogation or internal echoes centered in the popliteal region. The left popliteal vein are compressible demonstrated to normal phasic flow. US/US extremity nonvascular norman IMPRESSION: 5 cm popliteal cyst, left lower extremity. Electronically signed by: Dayday Bradley MD 02/25/2025 07:19 AM EDT
--- OUTSIDE RECORDS SUMMARY | 2025-02-24 17:32 | XMS_ITS | Encounter Summary ---
Author Organization [employer] Address [address] [facility] [address] [place] [address] Care Team Providers Care Hydrostatic Tubing Tester Name Role Phone Rossy Macias MD Primary Care Provider [phone] Reason for Visit * Reason Comments Med Refill Encounter Details Date Type Department Care Team ([facility] st Contact Info) Description 10/03/2023 Refill [facility] [address] [place] [address] Rossy Macias MD [address] [place] [address] Social History Tobacco Use Types Packs/Day Years [...] as of this encounter Plan of Treatment Upcoming Encounters Date Type Department Care Team (Late st Contact Info) Description 05/13/2025 11:30 AM EDT Office Visit [facility] [address] [place] [address] Rossy Macias MD [address] [place] [address] documented as of this encounter Visit Diagnoses Not on filedocumented in this encounter Additional Health Concerns Assessment Noted Time PHQ-9 Depression Total Score: 9 02/16/20 23 2:25 PM EDT documented as of this encounter Care Teams Hydrostatic Tubing Tester Relationship Specialty Start Date End Date Rossy Macias MD [address] [place] [address] PCP - General Family Medicine 07/15/14 documented as of this encounter
--- OUTSIDE RECORDS SUMMARY | 2025-02-24 17:32 | XMS_ITS | Clinical Summary ---
Author Organization [employer] Address [address] [facility] 7[address] [place] [address] Care Team Providers Care Chemist Pharmaceutical Name Role Phone Rossy Macias MD Primary Care Provider [phone] Allergies No known active allergies Medications levothyroxine (Synthroid, Levoxyl) 75 MCG tablet Take 1 Tablet by Oral route once 05/03/20 22 Active cholecalciferol VITAMIN D (Vitamin D-3) 50 MCG (1999 UT) tablet TAKE ONE TABLET EVERY MORNING 30 tablet 11 11/04/20 24 Active loratadine (Claritin) 10 MG tablet TAKE ONE TABLET EVERY MORNING 30 tablet 11 11/04/20 24 Active Ventolin HFA 108 (90 Base) MCG/ACT inhaler INHALE TWO PUFFS EVERY 4 HOURS NEEDED 18 g 1 12/03/19 25 Active fluticasone (Flonase) 50 MCG/ACT nasal sprayIndications: Acute frontal sinusitis, recurrence not specified Administer 1 spray into each nostril Once per day. Shake gently. Before first use, prime pump. After use, clean tip and replace cap. 16 mL 3 12/23/19 25 Active meloxicam (Mobic) 15 MG tablet Take 1 tablet (15 mg) by mouth Once per day. 15 tablet 01/22/20 25 2025 Active levothyroxine (Synthroid, Levoxyl) 75 MCG tabletIndications :Acquired hypothyroidism TAKE ONE TABLET BY MOUTH EVERY DAY 30 tablet 5 02/15/20 25 Active SUMAtriptan (Imitrex) 100 MG tabletIndications :Chronic migraine without aura without status migrainosus, not intractable TAKE 1 TABLET BY MOUTH AT ONSET OF MIGRAINE. MAY REPEAT ONCE AFTER 2 HOURS IF NEEDED, DO NOT EXCEED TWO TABLETS IN 24 HOURS 9 tablet 3 02/20/20 25 Active SUMAtriptan (Imitrex) 100 MG tabletIndications :Chronic migraine without aura without status migrainosus, not intractable TAKE 1 TABLET BY MOUTH AT ONSET OF MIGRAINE. MAY REPEAT ONCE AFTER 2 HOURS IF NEEDED. NO MORE THAN TWO TABLETS PER 24 HOURS 9 tablet 3 01/25/20 24 2024 Discontinued levothyroxine (Synthroid, Levoxyl) 75 MCG tabletIndications :Acquired hypothyroidism TAKE ONE TABLET BY MOUTH EVERY DAY 30 tablet 5 07/29/20 24 2024 Discontinued acetaminophen (Tylenol Extra Strength) 500 MG tablet Take 1 tablet (500 mg) by mouth every 6 (six) hours if needed for mild pain. 120 tablet 01/22/20 25 2024 Active Problems Problem Noted Date Diagnosed Date [...] Encounters Date Type Department Care Team Description 02/24/2025 Telephone [facility] [address] [place] [address] Rossy Macias MD Imaging Orders 02/18/2025 Refill [facility] [address] [place], [place] [phone] Rossy Macias MD Chronic migraine without aura without status migrainosus, not intractable 02/14/2025 Refill [facility] [address] [place], [place] [phone] Rossy Macias MD Acquired hypothyroidism 02/06/2025 Telephone [facility] [address] [place] [address] Rossy Macias MD Results 01/28/2025 10:45 AM EDT Office Visit [facility] [address] [place] [address] Rossy Macias MD Pain and swelling of knee, left (Primary Dx); Acquired hypothyroidism; Left leg swelling 01/28/2025 Travel 01/27/2025 Telephone [facility] [address] [place] [address] Rossy Macias MD Nurse Triage 01/21/2025 6:20 PM EST Office Visit [facility] [address] [place] [phone] Ruth Rosado MD Primary osteoarthritis of left knee (Primary Dx); Varicose veins of both lower extremities with pain 01/21/2025 Telephone [facility] [address] [place] [phone] Rossy Macias MD Nurse Triage 12/25/2024 Orders Only [facility] [address] [place] [phone] Rossy Macias MD 12/25/[address] [address] Yoselin Sher RN 12/23/2024 5:00 PM EST Office Visit [facility] [address] [place] [phone] Phyllis Dodd NP Acute frontal sinusitis, recurrence not specified (Primary Dx) 12/23/2024 Telephone [facility] [address] [place] [address] Rossy Macias MD Walk-In 12/16/2024 3:00 PM EST Office Visit [facility] [address] [place] [address] Gilma Long MD Frontal sinus pain (Primary Dx); Posterior left knee pain 12/16/2024 Travel 12/13/2024 Telephone [facility] [address] [place] [address] Rossy Macias MD No Show 12/12/2024 Telephone [facility] [address] [place] [address] Yoselin Ngo RN Walk-In (Sinus headache, occasional leg pain/) 12/12/2024 Telephone [facility] [address] [place] [address] Rossy Macias MD Walk-In 12/03/2024 Refill [facility] [address] [place] [address] Rossy Macias MD from Last 3 Months [...] 01/28/2025 11:10 AM EDT Plan of Treatment Upcoming Encounters Date Type Department Care Team (Late st Contact Info) Description 05/13/2025 11:30 AM EDT Office Visit [facility] [address] [place] [address] Rossy Macias MD [address] [place] [address] Health Maintenance Due Date Last Done Comments [...] 07/27/2018 Tobacco Screening 01/28/2026 01/28/2025 Lipid Panel 01/29/2030 01/29/2025, 05/0 11/2023, 02/15/2023 HIB Vaccines Aged Out No longer [...] Procedure Name Priority Date/Time Associated Diagnosis Comments URIC ACID Routine 01/29/2025 8:57 AM EDT Pain and swelling of knee, left LYME DISEASE AB W/REFL TO BLOT (IGG, IGM) Routine 01/29/2025 8:57 AM EDT Pain and swelling of knee, left RUTH SCREEN, IFA, W/REFL TITER AND PATTERN Routine 01/29/2025 8:57 AM EDT Pain and swelling of knee, left HEPATIC FUNCTION PANEL Routine 8:57 AM EDT Pain and swelling of knee, left TSH W/REFLEX TO FT4 Routine 01/29/2025 8 :57 AM EDT Pain and swelling of knee, left RHEUMATOID FACTOR Routine 01/29/2025 8:5 7 AM EDT Pain and swelling of knee, left SED RATE BY MODIFIED WESTERGREN Routine 01/29/2025 8:57 AM EDT Pain and swelling of knee, left CBC WITH AUTO DIFFERENTIAL Routine 01/29/2025 8:57 AM EDT Pain and swelling of knee, left BASIC METABOLIC PANEL, FASTING Routine 01/29/2025 8:57 AM EDT Pain and swelling of knee, left LIPID PANEL, STANDARD Routine 01/29/2025 8:57 AM EDT Pain and swelling of knee, left POCT INFLUENZA B Routine 12/23/2024 6:39 PM EST Acute frontal sinusitis, recurrence not specified POCT INFLUENZA A Routine 12/23/2024 6:39 PM EST Acute frontal sinusitis, recurrence not specified POCT RAPID COVID ANTIGEN Routine 12/23/2024 6:39 PM EST Acute frontal sinusitis, recurrence not specified XR KNEE 1-2 VIEWS LEFT Routine 1:47 PM EST Posterior left knee pain BI MAMMOGRAM SCREENING TOMOSYNTHESIS BILATERAL Routine 04/13/2023 1:25 PM EDT from Last 3 Months or Most Recently Relevant to Health Maintenance Results * (ABNORMAL) Basic Metabolic Panel, Fasting (01/29/2025 8:57 AM EDT) Sodium 141 135 - 145 mmol/L [facility] Potassium 4.1 3.3 - 5.1 mmol/L [facility] Chloride 112(H) 96 - 108 mmol/L [facility] Carbon Dioxide 22 22 - 29 mmol/L [facility] Anion Gap 11(L) 12 - 20 [facility] Urea Nitrogen (BUN) 20(H) 9 - 16 mg/dL [facility] Creatinine, Serum 0.82 0.5 - 1.4 mg/dL [facility] Estimated Glomerular Filt Rate >60 [facility] Comment:Chronic Kidney Disea se: Estimated GFR < 60 mL/min/1.86o4Hmhqbr Kidney Disease: Estimated GFR < 15 mL/min/1.73m2 Glucose Fasting 94 60 - 99 mg/dL [facility] Calcium 8.7 8.4 - 10.2 mg/dL [facility] Blood Venous blood specimen / Unknown 01/29/2025 8:57 AM EDT 01/29/2025 2:20 PM EDT Rossy Macias MD LAB BLOOD ORDERABLES Final Re sult Performing Organization Address [facility] Co de Phone Number [facility] [address] [place] [phone] * TSH W/Reflex to FT4 (01/29/2025 8:57 AM EDT) TSH reflex Free T4 2.29 0.32 - 4.0 uIU/mL [facility] Blood Venous blood specimen / Unknown 01/29/2025 8:57 AM EDT 01/29/2025 2:20 PM EDT Rossy Macias MD LAB BLOOD ORDERABLES Final Re sult Performing Organization Address [facility] Co de Phone Number [facility] [address] [place] [phone] * Lyme Disease Ab with Reflex to Blot (IgG, IgM) (01/29/2025 8:57 AM EDT) Lyme Antibody Screen <0.90 index [facility] Comment:Index Interpretation ----- < 0.90 Negative 0.90-1.09 Equivocal > 1.09 PositiveAs recommended by the Food and Drug Administration(FDA), all samples with positive or equivocalresults in a Borrelia burgdorferi antibody screenwill be tested using a blot method. Positive orequivocal screening test results should not beinterpreted as truly positive until verified as suchusing a supplemental assay (e.g., B. burgdorferi blot).The screening test and/or blot for B. burgdorferiantibodies may be falsely negative in early stagesof Lyme disease, including the period when erythemamigrans is apparent.THIS TEST WAS PERFORMED AT:[facility] [address] [id number] EUCEDA MD Lyme Blot TNP [facility] 01/29/2025 8:57 AM EDT 01/29/2025 2:20 PM EDT us Rossy Macias MD LAB BLOOD ORDERABLES Final Re sult [facility] [address] [place] [phone] * (ABNORMAL) CBC auto differential (01/29/2025 8:57 AM EDT) White Blood Count 4.8 4.8 - 10.8 X10*3/uL [facility] Red Blood Count 3.79(L) 4.20 - 5.50 X10*6/uL [facility] Hemoglobin 11.6(L) 12.0 - 16.0 g/dl [facility] Hematocrit 35.0(L) 37.0 - 47.0 % [facility] Mean Corpuscular Volume 92.3 80.0 - 98.0 fL [facility] Mean Corpuscular Hemoglobin 30.6 27.0 - 33.0 pg [facility] Mean Corpuscular HGB Conc 33.1 31.0 - 35.0 g/dl [facility] Red Cell Distribution Width 12.4 11.0 - 16.0 % [facility] Platelet Count 247 160 - 400 X10*3/uL [facility] Mean Platelet Volume 10.0 9.4 - 12.3 fL [facility] Neutrophils Percent Auto 47.9 45 - 73 % [facility] Imm Gran Pct Auto 0.2 0.0 - 0.4 % [facility] Lymphocytes Percent Auto 38.5 20 - 40 % [facility] Monocytes Percent Auto 7.0 2 - 11 % [facility] Eosinophils Percent Auto 5.6(H) 0 - 4 % [facility] Basophils Percent Auto 0.8 0 - 2 % [facility] NRBC Pct Auto 0.0 0.0 - 0.2 /100WBC [facility] Neutrophils Absolute Auto 2.3 2.0 - 8.3 x10*3/uL [facility] Imm Gran Abs Auto 0.01 0.00 - 0.03 X10*3/uL [facility] Lymphocytes Absolute Auto 1.9 1.2 - 4.9 X10*3/uL [facility] Monocytes Absolute Auto 0.3 0.1 - 1.2 X10*3/uL [facility] Eosinophils Absolute Auto 0.3 0.0 - 0.4 X10*3/uL [facility] Basophils Absolute Auto 0.0 0.0 - 0.2 X10*3/uL [facility] NRBC Abs Auto 0.000 0.0 - 0.012 X10*3/uL [facility] Blood Venous blood specimen / Unknown 01/29/2025 8:57 AM EDT 01/29/2025 2:20 PM EDT us Rossy Macias MD LAB BLOOD ORDERABLES Final Re sult [facility] [address] [place] [phone] * Sed Rate by Modified Melissa (01/29/2025 8:57 AM EDT) Erythrocyte Sedimentation Rate 5 0 - 20 MM/HR [facility] Comment:Patients with polycy themia and many hemoglobin abnormalitiesmay have depressed sed rates whereas patients with anemiamay have elevated sed rates. Blood Venous blood specimen / Unknown 01/29/2025 8:57 AM EDT 01/29/2025 2:20 PM EDT us Rossy Macias MD LAB BLOOD ORDERABLES Final Re sult Performing Organization Address [facility]/ZIP Co de Phone Number [facility] [address] [place] [phone] [phone] * Rheumatoid Factor (01/29/2025 8:57 AM EDT) Pathologist [facility] Rheumatoid Factor <13.0 <15.0 IU/mL [facility] Blood Venous blood specimen / Unknown 01/29/2025 8:57 AM EDT 01/29/2025 2:20 PM EDT us Rossy Macias MD LAB BLOOD ORDERABLES Final Re sult Performing Organization Address [facility] de Phone Number [facility] [address] [place] [phone] * RUTH Screen,IFA, with Reflex to Titer and Pattern (01/29/2025 8:57 AM EDT) Pathologist [facility] Anti Nuclear Antibody Screen NEGATIVE NEGATIVE [facility] Comment:RUTH IFA is a first l ine screen for detecting thepresence of up to approximately 150 autoantibodies invarious autoimmune diseases. A negative RUTH IFA resultsuggests an RUTH-associated autoimmune disease is notpresent at this time, but is not definitive. If thereis high clinical suspicion for Sjogren's syndrome,testing for anti-SS-A/Ro antibody should be considered.Anti-Veronica-1 antibody should be considered for clinicallysuspected inflammatory myopathies.AC-0: NegativeInternational Consensus on RUTH Patterns(https://doi.org/10.1515/psbh-2004-5220)For additional information, please refer tohttp://education.[employer]. com/faq/ODG487(This link is being provided for informational/educational purposes only.)THIS TEST WAS PERFORMED AT:[facility] [address] [id number] EUCEDA MD RUTH Titer TNP [facility] RUTH Pattern TNP [facility] RUTH TITER 2 (REF LAB) TNP [facility] RUTH Pattern 2 TNP [facility] RUTH TITER 3 [facility] RUTH PATTERN 3 [facility] Blood Venous blood specimen / Unknown 01/29/2025 8:57 AM EDT 01/29/2025 2:20 PM EDT Rossy Macias MD LAB BLOOD ORDERABLES Final Re sult Performing Organization Address [facility] Co de Phone Number [facility] [address] [place] [phone] * Uric acid (01/29/2025 8:57 AM EDT) Uric Acid 4.1 2.4 - 5.7 mg/dL [facility] Blood Venous blood specimen / Unknown 01/29/2025 8:57 AM EDT 01/29/2025 2:20 PM EDT Rossy Macias MD LAB BLOOD ORDERABLES Final Re sult Performing Organization Address [facility] Co de Phone Number [facility] [address] [place] [phone] * Hepatic Function Panel (01/29/2025 8:57 AM EDT) Bilirubin, Total 0.6 0.0 - 1.0 mg/dL [facility] Bilirubin, Direct 0.2 0.0 - 0.5 mg/dL [facility] Aspartate Amino Transferase 25 5 - 31 U/L [facility] Alanine Aminotransferase 16 0 - 31 U/L [facility] Total Protein 6.6 6.5 - 8.0 g/dL [facility] Albumin Level 3.9 3.5 - 5.0 g/dL [facility] Alkaline Phosphatase 84 39 - 117 U/L [facility] Blood Venous blood specimen / Unknown 01/29/2025 8:57 AM EDT 01/29/2025 2:20 PM EDT Rossy Macias MD LAB BLOOD ORDERABLES Final Re sult Performing Organization Address [facility] Co de Phone Number [facility] [address] [place] [phone] * (ABNORMAL) Lipid Panel, Standard (01/29/2025 8:57 AM EDT) Triglycerides 37 <150 mg/dL [facility] Comment:Desirable Triglyceri de: less than 150 mg/dLBorderline High Triglyceride 150-199 mg/dLHigh Triglyceride: 200-499 mg/dLVery High Triglyceride: greater than or equal to 5OO mg/dL Cholesterol 201(H) <200 mg/dL [facility] Comment:Desirable Cholestero l: less than 200 mg/dLBorderline High Cholesterol: 200-239 mg/dLHigh Cholesterol: greater than 239 mg/dL LDL Cholesterol Calculated 110(H) <100 mg/dL [facility] Comment:Desirable LDL: less than 100 mg/dLNear Optimal/Above Optimal LDL: 110- 129 mg/dLBorderline High LDL: 130-159 mg/dLHigh LDL: 160-189 mg/dLVery High LDL: greater than or equal to 190 mg/dL HDL Cholesterol 84 >40 mg/dL [facility] Comment:Desirable HDL: great er than 40 mg/dL Note: This HDL assay may give artificially low results in patients with liver disease. Blood Venous blood specimen / Unknown 01/29/2025 8:57 AM EDT 01/29/2025 2:20 PM EDT Rsosy Macias MD LAB BLOOD ORDERABLES Final Re sult Performing Organization Address [facility]/ZIP Co de Phone Number [facility] [address] [place] [phone] * POCT Rapid COVID Ag (12/23/2024 6:39 PM EST) Rapid COVID Ag Negative QC Media Lot # [id number] Lot# Expiration Date Swab 12/23/2024 6:39 PM EST [facility] G[employer] OPERATOR POINT OF CARE TEST ENTER/EDIT O RDERABLES Final Result * POCT Influenza B manually resulted (12/23/2024 6:39 PM EST) [facility] Rapid Influenza B Ag Negative Negative, Indeterminate QC Media Lot # [id number] Lot# Expiration Date Swab 12/23/2024 6:39 PM EST [facility] GANG P[employer] OPERATOR POINT OF CARE TEST ENTER/EDIT O RDERABLES Final Result * POCT Influenza A manually resulted (12/23/2024 6:39 PM EST) [facility] Rapid Influenza A Ag Negative Negative, Indeterminate QC Media Lot # [id number] Lot# Expiration Date Swab Nasopharyngeal structure / Unknown 12/23/2024 6:39 PM EST [facility] G[employer] P[employer] OPERATOR POINT OF CARE TEST ENTER/EDIT O RDERABLES Final Result * XR Knee 1-2 Views Left (12/23/2024 1:47 PM EST) Anatomical Region Laterality Modality Lower Extremities, Knee Left Radiogra phic Imaging 12/23/2024 1:47 PM EST Narrative 12/23/2024 1:49 PM EST ? [facility] ?[address] ?[place] [address] ?XRay Report ? Signed ? Patient: Piskorz Zyla,Macarena ?MR#: ?? [id number] ? : 1955 ?Acct:[id number] ? Age/Sex: 69 / F ?ADM Date: 02/03/25 ? Loc: HO.XRAY ? Attending Dr: Gilma Long MD ? Ordering Physician: Gilma Long MD ?? Date of Service: 12/23/24 ?? Procedure(s): XR knee LT 2V ?? Accession Number(s): [id number] ? cc: Gilma Long MD ? CLINICAL [...] DD/ 1347 ? TD/TT: 12/23/24 1347 ? Gaming Commissioner: ? Procedure Note Donjamila, Image - 12/23/2024 [place] [address] XRay Report Signed Patient: Macarena RoaMR#: [id number] : 8Acct:[id number] Age/Sex: 69 / FADM Date: 12/23/24 Loc: J[facility] Attending Dr: Gilma Long MD Ordering Physician: Gilma Long MD Date of Service: 12/23/24 Procedure(s): XR knee LT 2V Accession Number(s): [id number] cc: Gilma Long MD CLINICAL HISTORY: 3 [...] Robert MD Signed By: <Electronically signed by Yoselin Robert MD in OV> 12/23/24 1348 DD/ 1347 TD/TT: 12/23/24 1347 Gaming Commissioner: us Gilma Long MD IMG XR PROCEDURES Final Resul t * BI Mammogram Screening Tomosynthesis Bilateral (04/13/2023 1:25 PM EDT) Anatomical Region Laterality Modality Breast Bilateral Mammography 04/13/2023 1:25 PM EDT Narrative 04/16/2023 12:33 PM EDT ? [facility] ? [address] [place] [address] ? Mammography Report ? Signed ? Patient: Artirmarkus Markusmaye,Macarena ?MR#: ?? [id number] ? : 1955 ?Acct:[id number] ? Age/Sex: 67 / F ?ADM Date: // ? Loc: HO.MAMMO ? Attending Dr: Rossy Macias MD ? Ordering Physician: Rossy Macias MD ?Results: 2Be ?? nign Findings ? Date of Service: // ?Follow Up: 1 Year From Orig ?? inal Mammogram ? Procedure(s): MM tomosynthesis screening BI ?? Accession Number(s): [id number] ? cc: Rossy Macias MD ? EXAMINATION: [...] signed by Thomas Lai MD in OV> ?// 1231 ? DD/DT: 04/13/ 1325 ? TD/TT: ? Gaming Commissioner: GUTIERRES ? Procedure Note Anna Nguyen - 05/18/2023 [place] [facility] [address] [place] [address] Mammography Report Signed Patient: FlashLilly Coats#: [id number] : 8Acct:[id number] Age/Sex: 67 / FADM Date: 04/13/23 Loc: HO.MAMMO Attending Dr: Rossy Macias MD Ordering Physician: Rossy Macias MDResults: 2Be nign Findings Date of Service: 04/13/23Follow Up: 1 Year From Orig inal Mammogram Procedure(s): MM tomosynthesis screening BI Accession Number(s): [id number] cc: Rossy Macias MD EXAMINATION: MM SCREENING [...] in OV> 04/16/23 1231 DD/ 1325 TD/TT: Gaming Commissioner: BHAVIK [facility] External Provider IMG BI PROCEDURES Edited Result - Final from Last 3 Months or Most Recently Relevant to Health Maintenance Insurance Care Teams Chemist Pharmaceutical Relationship Specialty Start Date End Date Rossy Macias MD [address] [place] [address] PCP - General Family Medicine 07/15/14
--- OUTSIDE RECORDS SUMMARY | 2025-02-24 17:32 | XMS_ITS | Encounter Summary ---
Author Organization [employer] Address [address] [facility] [address] [place] [address] Care Team Providers Care Waste Management Recycling Technician Name Role Phone Rossy Macias MD Primary Care Provider [phone] Reason for Visit * Reason Comments Med Refill Encounter Details Date Type Department Care Team ([facility] st Contact Info) Description 02/18/2025 Refill [facility] [address] [place] [address] Rossy Macias MD [address] [place] [address] Chronic migraine without aura without status migrainosus, not intractable Social History Tobacco Use Types Packs/Day Years [...] Description 05/13/2025 11:30 AM EDT Office Visit [facility] [address] [place] [address] Rossy Macias MD [address] [place] [address] documented as of this encounter Visit Diagnoses Diagnosis Chronic migraine without aura without status migrainosus, not intractable documented in this encounter Additional Health Concerns Assessment Noted Time PHQ-9 Depression Total Score: 9 02/16/20 23 2:25 PM EDT documented as of this encounter Care Teams Waste Management Recycling Technician Relationship Specialty Start Date End Date Rossy Macias MD [address] [place] [address] PCP - General Family Medicine 07/15/14 documented as of this encounter
--- OUTSIDE RECORDS SUMMARY | 2025-02-24 17:32 | XMS_ITS | Encounter Summary ---
Author Organization [employer] Address [address] [facility] [address] [place] [address] Care Team Providers Care Pathologist Assistant Name Role Phone Rossy Macias MD Primary Care Provider [phone] Reason for Referral * Imaging (Routine) - Authorized Specialty Diagnoses / Procedures Referred By Contac t Referred To Contact Radiology Diagnoses Left leg swelling Pain and swelling of knee, left Procedures US SOFT TISSUE Rossy Macias MD [address] [place] [address] Phone: tel: fax: [address] Phone: tel: fax: Referral ID Status Reason Start Date Expiration Date V isits Requested Visits Authorized [id number] Authorized 02/24/2025 02/24/2026 1 1 Reason for Visit * Reason Onset Date Comments Imaging Orders 02/24/2025 Encounter Details Date Type Department Care Team ([facility] st Contact Info) Description 02/24/2025 Telephone [facility] CHC MED & PEDS [address] [place], [place] [phone] Rossy Macias MD [address] [place], [place] [phone] Imaging Orders Social History Tobacco Use Types Packs/Day Years [...] encounter Miscellaneous Notes * Telephone Encounter - Christin Jose RN - 02/24/2025 12:07 PM EDT TC received from Nimisha with radiology at [facility]. Nimisha stated that pt is to be seen this afternoon for ultrasound to rule out leach's cyst. Nimisha stated that ultrasound has to say soft tissue and notvascular. Author verbalized that would work on fixing order. Nimisha provided [facility] radiology fax number [phone]. documented in this encounter Plan of Treatment Upcoming Encounters Date Type Department Care Team ([facility] st Contact Info) Description 05/13/2025 11:30 AM EDT Office Visit [facility] CHC MED & PEDS [address] [place], [place] [phone] Rossy Macias MD [address] [place], [place] [phone] Scheduled Orders Name Type Priority Associated Diagnoses Orde r Schedule US SOFT TISSUE Imaging Routine Left leg swelling Pain and swelling of knee, left Expected: 02/24/2025, Expires: 02/24/2026 documented as of this encounter Visit Diagnoses Diagnosis Left leg swelling Pain and swelling of knee, left documented in this encounter Additional Health Concerns Assessment Noted Time PHQ-9 Depression Total Score: 9 02/16/20 23 2:25 PM EDT documented as of this encounter Care Teams Pathologist Assistant Relationship Specialty Start Date End Date Rossy Macias MD [address] [place] [id number] PCP - General Family Medicine 07/15/14 documented as of this encounter
== END 2025-02-24 14:40 | disposition home or self-care (01) ==
LOC: HO.HMGCX 14:39
PROVIDERS: PCP Pediatrics; Visit Provider Pediatrics
DX: R60.0 Localized edema (principal)
CPT/HCPCS: 76882

== ENCOUNTER → 2025-02-24 14:40 | Outpatient (BNV) | payer MEDICARE, SELFPAY | PROVIDERS: PCP Pediatrics; Visit Provider Radiology Diagnostic Radiology | DX: M71.22 Synovial cyst of popliteal space [Baker], left knee (principal) | CPT/HCPCS: 76882 ==

== ENCOUNTER 2025-04-16 14:06 | Outpatient (AMB) | payer MEDICARE, SELFPAY ==
[2025-04-16 14:07] VITALS: BMI 22.3
--- NOTE | 2025-04-16 14:07 | MHC.OFFVIS ---
Vital Signs 04/16/25 14:07 Height 5 ft 6 in Weight 138 lb BMI 22.3 Intake Visit Reasons: Left knee pain Intake Note: Macarena is 69 year old female who presents with intermittent discomfort along the medial aspect of her left knee. The patient states that she aggravated her knee when she was taking a gymnastics class at the [facility] approximately 6 months ago. The patient has recently modified her activities. She reports only mild intermittent discomfort in her knee at this time. She states that she does have a palpable cyst along the posterior aspect of her knee which somewhat limits her ability to flex her knee deeply. She does not take any medicines for her discomfort. Program Project Manager Required: Yes Program Project Manager Language: Tajik Program Project Manager Name: [id number] Jak Information Interpreted: non-clinical & clinical Allergies environmental allergies Allergy (Verified 04/16/25 14:14) Unknown Medication List - Last Reviewed 04/16/25 by ASYA Mena albuterol sulfate 90 mcg/actuation 2 puffs inhalation Q4H PRN fluticasone propionate 50 mcg/actuation 2 sprays intranasal DAILY levothyroxine 75 mcg PO DAILY loratadine 10 mg PO DAILY PRN sumatriptan succinate 100 mg PO PFSH Medical History SVT (supraventricular tachycardia) Surgical History Status post radiofrequency ablation (RFA) operation for arrhythmia Family History Father CAD (coronary artery disease) Cancer of kidney History of nephrectomy Mother CAD (coronary artery disease) Heart attack Social History Alcohol intake: current Alcohol intake frequency: holidays/special occasions only Alcohol type: wine Patient Tobacco Use Status: Never used Tobacco Physical Exam Vital Signs: BMI result Body Mass Index 22.3 Const Other: Well-nourished well-developed very friendly female awake alert and oriented x3 in no acute distress Extrem Other: Left knee examination shows a minimal effusion, minimal crepitus with range of motion, tenderness along her medial joint line, a small palpable popliteal cyst, no overlying skin lesions Results Reviewed Results Reviewed: X-rays of the patient's left knee show mild diffuse joint space narrowing, no acute bony abnormalities Assessment & Plan Assessment & Plan (1) Left knee pain: Code(s): M25.562 - Pain in left knee Plan Macarena presents with left knee pain most likely due to a medial meniscus tear. I had a lengthy discussion with the patient regarding the treatment options. I did not recommend that the patient undergo aspiration of the popliteal cyst due to the fact that it will likely reoccur and its proximity to neurovascular structures. I did recommend that the patient get an MRI of her left knee to further evaluate the status of her medial meniscus. She wishes to hold off on an MRI at this time. I did give her a prescription for a Medrol Dosepak. She will follow up with me on an as-needed basis. Feel free to call me at any time should questions regarding her orthopedic management arise. I spent 22 minutes in reviewing the patient's records and imaging studies, seeing the patient and documenting in the medical record. Medications: New methylprednisolone (Medrol (Tanner)) PO PER PKG DIR 21 ea 0RF Coding Level of Care Code New Pt Level 3 (60567) Complex EM visit Add On G2211 Diagnoses Left knee pain M25.562
--- OUTSIDE RECORDS SUMMARY | 2025-04-16 15:00 | XMS_ITS | Encounter Summary ---
Author Organization [employer] Address [address] [facility] [address] [place] [address] Care Team Providers Care Chemical Detection Expert Name Role Phone Rossy Macias MD Primary Care Provider [phone] Reason for Visit * Reason Comments Med Refill Encounter Details Date Type Department Care Team ([facility] st Contact Info) Description 10/03/2023 Refill [facility] CHC MED & PEDS [address] [place] [address] Rossy Macias MD [address] [place] [address] Social History Tobacco Use Types Packs/Day Years [...] Description 05/13/2025 11:30 AM EDT Office Visit [facility] MED & PEDS [address] [place] [address] Rossy Macias MD [address] [place] [address] documented as of this encounter Visit Diagnoses Not on filedocumented in this encounter Additional Health Concerns Assessment Noted Time PHQ-9 Depression Total Score: 9 02/16/20 23 2:25 PM EDT documented as of this encounter Care Teams Chemical Detection Expert Relationship Specialty Start Date End Date Rossy Macias MD [address] [place] [address] PCP - General Family Medicine 07/15/14 documented as of this encounter
== END 2025-04-16 14:28 | disposition home or self-care (01) ==
LOC: HO.HOS 14:06
PROVIDERS: PCP Pediatrics; Visit Provider Orthopaedic Surgery
DX: M25.562 Pain in left knee (principal)
CPT/HCPCS: 99203; G2211

== ENCOUNTER → 2025-04-16 14:06 | Outpatient (BNVA) | payer MEDICARE, SELFPAY | PROVIDERS: PCP Pediatrics; Visit Provider Orthopaedic Surgery | DX: M25.562 Pain in left knee (principal) | CPT/HCPCS: 99202 ==

== ENCOUNTER 2025-05-13 12:37 | Outpatient (REF) | payer MEDICARE, SELFPAY ==
--- OUTSIDE RECORDS SUMMARY | 2025-05-13 14:09 | XMS_ITS | Encounter Summary ---
Author Organization [employer] Address [address] [facility] [address] [place] [address] Care Team Providers Care Ranch Hand Name Role Phone Rossy Macias MD Primary Care Provider [phone] Reason for Visit * Reason Comments Med Refill Encounter Details Date Type Department Care Team ([facility] st Contact Info) Description 10/03/2023 Refill [facility] CHC MED & PEDS [address] [place] [address] Rossy Macias MD [address] [place] [address] Social History Tobacco Use Types Packs/Day Years [...] Care Team (Late st Contact Info) Description 08/13/2025 9:15 AM EDT Office Visit [facility] MED & PEDS [address] [place] [address] Rossy Macias MD [address] [place] [address] documented as of this encounter Visit Diagnoses Not on filedocumented in this encounter Additional Health Concerns Assessment Noted Time PHQ-9 Depression Total Score: 9 02/16/20 23 2:25 PM EDT documented as of this encounter Care Teams Ranch Hand Relationship Specialty Start Date End Date Rossy Macias MD [address] [place] [address] PCP - General Family Medicine 07/15/14 documented as of this encounter
[2025-05-13 14:28] LABS: Iron 75 mcg/dL (30-160); Percent Iron Saturation 27 % (15-50); Total Iron Binding Capacity 279 mcg/dL (228-428); Unsaturated Iron Binding 204 ug/dL
[2025-05-13 14:52] LABS: Ferritin 116 ng/mL (10-250); Vitamin D 25-OH Total 41.9 ng/mL (>30)
[2025-05-13 14:54] LABS: Folate 7.4 ng/mL (> or = 4.0); Vitamin B12 302 pg/mL (200-900)
== END 2025-05-13 12:38 | disposition home or self-care (01) ==
LOC: HO.CHCLDS 12:37
PROVIDERS: Visit Provider Pediatrics
DX: D64.9 Anemia, unspecified (principal)
CPT/HCPCS: 36415; 82306; 82607; 82728; 82746; 83540